=== PATIENT | male | born 1970 | race American Indian/Alaskan Native ===

== ENCOUNTER 2017-08-23 00:16 | Emergency (ER) | payer MEDICARE ==
[2017-08-23 01:04] VITALS: BP 127/81
--- NOTE | 2017-08-23 03:28 | XRay Report ---
FINAL REPORT PROCEDURE: XR CHEST ROUTINE 2V TECHNIQUE: PA and lateral chest radiographs were obtained. CPT 32901 HISTORY: Shortness of breath COMPARISON: No prior studies are available for comparison. FINDINGS: Heart: Normal. Mediastinum/Vessels: Normal. Lungs/Pleural space: Mild scar formation left lower lung. No consolidation, effusion or pneumothorax. Bony thorax: No acute osseous abnormality. Other: IMPRESSION: No evidence of an acute cardiopulmonary process.
[2017-08-23] MEDS ORDERED: DUONEB *Not for PRN Use IH ONE ×2 (03:36→03:43)
--- NOTE | 2017-08-23 07:45 | Emergency Department Report ---
- General Chief Complaint: Upper Respiratory Infection Stated Complaint: CHEST PAIN,SOB Time Seen by Provider: 08/23/17 05:40 Source: patient Mode of arrival: Ambulatory Limitations: No Limitations - Related Data Allergies Allergy/AdvReac Type Severity Reaction Status Date / Time No Known Allergies Allergy Verified 08/23/17 04:05 ED Review of Systems ROS: Stated complaint: CHEST PAIN,SOB Other details as noted in HPI ED Past Medical Hx - Past Medical History Previous Medical History?: Yes Hx Hypertension: Yes Hx Asthma: Yes Hx COPD: Yes Additional medical history: emphazema - Surgical History Past Surgical History?: Yes Additional Surgical History: tendon in right hand fixed - Social History Smoking Status: Current Every Day Smoker Substance Use Type: Prescribed ED Physical Exam - General Limitations: No Limitations ED Course Vital Signs 08/23/17 08/23/17 00:39 01:00 Temperature 99.3 F 99.8 F H Pulse Rate 105 H 104 H Respiratory 18 18 Rate Blood Pressure 122/81 127/81 O2 Sat by Pulse 96 96 Oximetry Critical care attestation.: If time is entered above; I have spent that time in minutes in the direct care of this critically ill patient, excluding procedure time. ED Disposition Clinical Impression: URI, acute Disposition: Z-07 ELOPED Is pt being admited?: No Does the pt Need Aspirin: No Condition: Stable Referrals: PRIMARY CARE, [Primary Care Provider] - 3-5 Days
== END 2017-08-23 05:45 | disposition left against medical advice (07) ==
LOC: ED 00:16
DX: J06.9 Acute upper respiratory infection, unspecified (principal); I10 Essential (primary) hypertension; J44.9 Chronic obstructive pulmonary disease, unspecified; F17.200 Nicotine dependence, unspecified, uncomplicated
CPT/HCPCS: 71046; 93005; 93010; 94640

== ENCOUNTER 2018-10-14 15:16 | Emergency (ER) | payer MEDICARE ==
[2018-10-14] MEDS ORDERED: PROVENTIL IH ONE ×2 (17:18→17:24)
[2018-10-14] MEDS ORDERED: ATROVENT IH ONE ×2 (17:19→17:23)
[2018-10-14 17:23] LABS: Basophils % (Auto) 0.4 % (0.0-1.8); Hematocrit 41.9 % (35.5-45.6); Lymphocytes # (Auto) 1.6 K/mm3 (1.2-5.4); Lymphocytes % (Auto) 14.4 % (13.4-35.0); Mean Corpuscular HGB Conc 34 % (32-34); Mean Corpuscular Volume 87 fl (84-94); Monocytes # (Auto) 0.6 K/mm3 (0.0-0.8); Monocytes % (Auto) 5.4 % (0.0-7.3); Platelet Count 302 K/mm3 (140-440); Red Blood Count 4.83 M/mm3 (3.65-5.03); Red Cell Distribution Width 15.6 % (13.2-15.2)
[2018-10-14 17:38] LABS: INR 0.98 (0.87-1.13); Partial Thromboplastin Time 25.3 Sec. (24.2-36.6)
--- NOTE | 2018-10-14 17:43 | XRay Report ---
PROCEDURE: XR CHEST 1V AP TECHNIQUE: Chest radiograph , single frontal view. HISTORY: Chest Pain COMPARISONS: CXR 08/23/2017 . FINDINGS: Heart: Normal. Mediastinum/Vessels: Normal. Lungs/Pleural space: Stable fibrotic changes in the left lung base are noted. Hyperinflation is agai n noted.. Bony thorax: No acute osseous abnormality. Life support devices: None. IMPRESSION: No acute cardiopulmonary abnormality. No change. This document is electronically signed by Siena Vanegas MD., Oct 14 2018 05:40:50 PM ET
[2018-10-14 17:53] LABS: BUN/Creatinine Ratio 13; Blood Urea Nitrogen 8 mg/dL (9-20); Calcium 9.2 mg/dL (8.4-10.2); Hemolysis Index 3
[2018-10-14 17:56] LABS: Alanine Aminotransferase 15 units/L (7-56); Albumin 4.5 g/dL (3.9-5)
[2018-10-14 18:02] LABS: Bilirubin,Direct < 0.2 mg/dL (0-0.2)
[2018-10-14] MEDS ORDERED: SOLU-Medrol IV ONE (18:46)
--- NOTE | 2018-10-14 18:53 | Emergency Department Report ---
ED General Adult HPI - General Chief complaint: Dyspnea/Respdistress Stated complaint: CHEST PAIN/ASTHMA ATTACK Time Seen by Provider: 10/14/18 16:44 Source: patient Mode of arrival: Ambulatory Limitations: No Limitations - History of Present Illness Initial comments: This is a 48-year-old man with advanced COPD who admits that he is still smoking ten cigarettes a day. He states he is cared for by the pulmonary clinic at [place]. He is currently on 40 mg of prednisone a day. He presents here for wheezing but not chest pain. He does not report any significant cough fever or chills. He states that he's been using his inhalers or anything unusual. He states he's run out of his Combivent inhaler. He does not reasonably attribute his exacerbation of COPD to his persistent smoking. -: Gradual, days(s) Severity scale (0 -10): 0 Associated Symptoms: denies other symptoms, shortness of breath. denies: chest pain, cough, diaphoresis, fever/chills - Related Data Previous Rx's Medication Instructions Recorded Last Taken Type Ipratropium/Albuter (Nf) 2 puff IH QID #1 inha 10/14/18 Unknown Rx [Combivent (Nf)] Allergies Allergy/AdvReac Type Severity Reaction Status Date / Time No Known Allergies Allergy Verified 08/23/17 04:05 ED Review of Systems ROS: Stated complaint: CHEST PAIN/ASTHMA ATTACK Other details as noted in HPI Constitutional: denies: chills, fever Eyes: denies: eye pain, eye discharge, vision change ENT: denies: ear pain, throat pain Respiratory: shortness of breath, wheezing. denies: cough Cardiovascular: denies: chest pain, palpitations Endocrine: no symptoms reported Gastrointestinal: denies: abdominal pain, nausea, diarrhea Genitourinary: denies: urgency, dysuria Musculoskeletal: denies: back pain, joint swelling, arthralgia Skin: denies: rash, lesions Neurological: denies: headache, weakness, paresthesias Psychiatric: denies: anxiety, depression Hematological/Lymphatic: denies: easy bleeding, easy bruising ED Past Medical Hx - Past Medical History Hx Hypertension: Yes Hx Asthma: Yes Hx COPD: Yes Additional medical history: emphazema - Surgical History Additional Surgical History: tendon in right hand fixed - Social History Smoking Status: Current Every Day Smoker Substance Use Type: None - Medications Home Medications: Home Medications Medication Instructions Recorded Confirmed Last Taken Type Ipratropium/Albuter (Nf) 2 puff IH QID #1 inha 10/14/18 Unknown Rx [Combivent (Nf)] ED Physical Exam - General Limitations: No Limitations General appearance: alert, in no apparent distress - Head Head exam: Present: atraumatic, normocephalic - Eye Eye exam: Present: normal appearance - ENT ENT exam: Present: mucous membranes moist - Neck Neck exam: Present: normal inspection - Respiratory Respiratory exam: Present: decreased breath sounds (somewhat distant breath sounds but no wheezing), prolonged expiratory (mildly). Absent: respiratory distress, accessory muscle use - Cardiovascular Cardiovascular Exam: Present: regular rate, normal rhythm. Absent: systolic murmur, diastolic murmur, rubs, gallop - GI/Abdominal GI/Abdominal exam: Present: soft, normal bowel sounds. Absent: distended, tende rness, guarding, rebound, rigid - Rectal Rectal exam: Present: deferred - Extremities Exam Extremities exam: Present: normal inspection - Back Exam Back exam: Present: normal inspection - Neurological Exam Neurological exam: Present: alert, oriented X3 - Psychiatric Psychiatric exam: Present: normal affect, normal mood - Skin Skin exam: Present: warm, dry, intact, normal color. Absent: rash ED Course Vital Signs 10/14/18 10/14/18 10/14/18 15:45 15:54 16:02 Temperature 98.7 F 98.7 F Pulse Rate 115 H 107 H 107 H Pulse Rate [ Anterior Bilateral] Respiratory 18 20 20 Rate Respiratory Rate [Anterior Bilateral] Blood Pressure 128/87 128/87 O2 Sat by Pulse 96 96 96 Oximetry 10/14/18 10/14/18 17:24 18:20 Temperature Pulse Rate Pulse Rate [ 100 H 102 H Anterior Bilateral] Respiratory Rate Respiratory 22 20 Rate [Anterior Bilateral] Blood Pressure O2 Sat by Pulse Oximetry - Reevaluation(s) Reevaluation #1: Patient improved with a neb treatment. The nurse reported to me that he requested to go outside and smoke. He was counseled of the importance for smoki ng cessation. He stated he was ready for discharge. He will be given Solu- Medrol prior to leaving. 10/14/18 18:51 ED Medical Decision Making - Lab Data Result diagrams: 10/14/18 17:06 10/14/18 17:06 Laboratory Results - last 24 hr 10/14/18 10/14/18 10/14/18 17:06 17:06 17:06 WBC 11.3 H RBC 4.83 Hgb 14.0 Hct 41.9 MCV 87 MCH 29 MCHC 34 RDW 15.6 H Plt Count 302 Lymph % (Auto) 14.4 [place] % (Auto) 5.4 Eos % (Auto) 0.0 Baso % (Auto) 0.4 Lymph # 1.6 [place] # 0.6 Eos # 0.0 Baso # 0.0 Seg Neutrophils % 79.8 H Seg Neutrophils # 9.0 H PT 13.6 INR 0.98 APTT 25.3 D-Dimer < 135.0 Sodium 139 Potassium 4.2 Chloride 100.2 Carbon Dioxide 28 Anion Gap 15 BUN 8 L Creatinine 0.6 L Estimated GFR > 60 BUN/Creatinine Ratio 13 Glucose 93 Calcium 9.2 Total Bilirubin Direct Bilirubin Indirect Bilirubin AST ALT Alkaline Phosphatase Troponin T < 0.010 Total Protein Albumin Albumin/Globulin Ratio 10/14/18 17:06 WBC RBC Hgb Hct MCV MCH MCHC RDW Plt Count Lymph % (Auto) [place] % (Auto) Eos % (Auto) Baso % (Auto) Lymph # [place] # Eos # Baso # Seg Neutrophils % Seg Neutrophils # PT INR APTT D-Dimer Sodium Potassium Chloride Carbon Dioxide Anion Gap BUN Creatinine Estimated GFR BUN/Creatinine Ratio Glucose Calcium Total Bilirubin 0.40 Direct Bilirubin < 0.2 Indirect Bilirubin 0.2 AST 14 ALT 15 Alkaline Phosphatase 59 Troponin T Total Protein 6.8 Albumin 4.5 Albumin/Globulin Ratio 2.0 - EKG Data -: EKG Interpreted by Dc EKG shows normal: sinus rhythm, axis, intervals, QRS complexes, ST-T waves Rate: tachycardia - EKG Data Interpretation: no acute changes, other (P pulmonale sinus tachycardia) - Radiology Data Radiology results: report reviewed (x-rays consistent with COPD. No acute process.) Critical care attestation.: If time is entered above; I have spent that time in minutes in the direct care of this critically ill patient, excluding procedure time. ED Disposition Clinical Impression: COPD exacerbation Disposition: DC- TO HOME OR SELFCARE Is pt being admited?: No Does the pt Need Aspirin: No Condition: Stable Instructions: Chronic Obstructive Pulmonary Disease (ED) Additional Instructions: Smoking cessation is essential. Return to the emergency department any acute change or problem. Prescriptions: Ipratropium/Albuter (Nf) [Combivent (Nf)] 2 puff IH QID #1 inha Referrals: [facility] MD SARA [Primary Care Provider] - 3-5 Days Time of Disposition: 18:53
[2018-10-14 19:22] VITALS: BP 140/98
[2018-10-14 22:56] LABS: Bilirubin,Urine NEG (Negative); Blood,Urine NEG (Negative); Color,Urine Yellow (Yellow); Mucus,Urine 3+ /HPF; Protein,Urine <15 mg/dL mg/dL (Negative)
[2018-10-14 23:01] LABS: Amphetamine Screen,Urine PRESUMPTIVE NEGATIVE; Benzodiazepines Screen,Urine PRESUMPTIVE NEGATIVE; Cannabinoid Screen,Urine PRESUMPTIVE NEGATIVE; Cocaine Screen,Urine PRESUMPTIVE NEGATIVE; Methadone Screen,Urine PRESUMPTIVE NEGATIVE; Opiate Screen,Urine PRESUMPTIVE NEGATIVE
== END 2018-10-14 19:20 | disposition home or self-care (01) ==
LOC: ED 15:16
DX: J44.1 Chronic obstructive pulmonary disease with (acute) exacerbation (principal); I10 Essential (primary) hypertension; F17.200 Nicotine dependence, unspecified, uncomplicated
CPT/HCPCS: 36415; 71045; 80048; 80076; 80307; 81001; 84484; 85025; 85379; 85610; 85730; 93005; 93010; 94640; 96374; 99284; J2930

== ENCOUNTER 2019-02-07 18:14 | Emergency (ER) | payer OTHER, MEDICARE ==
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
[2019-02-07] MEDS ORDERED: TYLENOL PO ONE (20:17)
[2019-02-07] MEDS ORDERED: IBUPROFEN PO ONE (20:17)
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
[2019-02-07] MEDS ORDERED: NACL 0.9% 1000 ML 1,000 ML IV ONE (20:53)
[2019-02-07] MEDS ORDERED: APRESOLINE IV ONE ×2 (20:53→21:34)
[2019-02-07] MEDS ORDERED: NACL 0.9% 1000 ML 1,000 ML ONE (20:56)
[2019-02-07] MEDS ORDERED: DUONEB *Not for PRN Use IH ONE ×2 (21:42→21:46)
[2019-02-07] MEDS ORDERED: DELTASONE PO ONE (21:42)
[2019-02-07] MEDS ORDERED: DELTASONE ONE (21:46)
[2019-02-07 23:20] VITALS: BP 157/100
== END 2019-02-07 22:15 | disposition home or self-care (01) ==
LOC: ED 18:14
DX: S29.011A Strain of muscle and tendon of front wall of thorax, initial encounter (principal); S27.69XA Other injury of pleura, initial encounter; I10 Essential (primary) hypertension; J44.9 Chronic obstructive pulmonary disease, unspecified; F17.200 Nicotine dependence, unspecified, uncomplicated; Z79.899 Other long term (current) drug therapy; V49.9XXA Car occupant (driver) (passenger) injured in unspecified traffic accident, initial encounter; Y93.89 Activity, other specified; Y92.410 Unspecified street and highway as the place of occurrence of the external cause; Y99.8 Other external cause status
CPT/HCPCS: 71111; 94640; 96374; 99283; J0360; J7030; J7512

== ENCOUNTER 2019-02-13 02:56 | Emergency (ER) | payer MEDICARE, OTHER ==
[2019-02-13] MEDS ORDERED: ASPIRIN PO ONE (03:07)
[2019-02-13 03:30] LABS: Basophils # (Auto) 0.1 K/mm3 (0.0-0.1); Basophils % (Auto) 1.2 % (0.0-1.8); Eosinophils % (Auto) 0.5 % (0.0-4.3); Hematocrit 41.2 % (35.5-45.6); Lymphocytes # (Auto) 1.9 K/mm3 (1.2-5.4); Mean Corpuscular HGB Conc 34 % (32-34); Mean Corpuscular Volume 87 fl (84-94); Monocytes # (Auto) 0.8 K/mm3 (0.0-0.8); Monocytes % (Auto) 9.5 % (0.0-7.3); Platelet Count 300 K/mm3 (140-440); Red Blood Count 4.75 M/mm3 (3.65-5.03); Red Cell Distribution Width 14.4 % (13.2-15.2)
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
[2019-02-13 03:51] LABS: BUN/Creatinine Ratio 16; Blood Urea Nitrogen 13 mg/dL (9-20); Calcium 9.6 mg/dL (8.4-10.2); Hemolysis Index 16
--- NOTE | 2019-02-13 03:53 | XRay Report ---
CHEST 1 VIEW 0319 INDICATION / CLINICAL INFORMATION: Chest Pain. COMPARISON: 02/07/2019 FINDINGS: SUPPORT DEVICES: None HEART / MEDIASTINUM: No significant abnormality. LUNGS / PLEURA: Chronic changes are again seen in the left lung. Right lung field is clear. No pneumo thorax. ADDITIONAL FINDINGS: No significant additional findings. IMPRESSION: No significant acute abnormality Signer Name: Gerardo Linn MD Signed: 02/13/2019 3:49 AM Workstation Name: [id number]
[2019-02-13] MEDS ORDERED: DUONEB *Not for PRN Use IH ONE (04:37)
--- NOTE | 2019-02-13 04:54 | Cat Scan Report ---
CTA CHEST WITH IV CONTRAST INDICATION: Tachycardia, chest pain, shortness of breath CONTRAST: 100 cc Omnipaque 350 IV COMPARISON: Chest x-ray tonight and 08/23/2017 Three-plane MIP reconstructions were produced. All CT scans at this location are performed using CT d ose reduction for ALARA by means of automated exposure control. FINDINGS: No significant axillary or chest wall lesions are seen. No mediastinal or hilar masses are noted. Small hiatal hernia is seen. The lower esophageal wall appears mildly and diffusely thickened. Visualized portions of the upper abdomen show what are probably small hemangiomata at 3 sites in the liver. Moderate chronic changes are seen in the lung meade bilaterally including emphysematous lou ges which are most prominent in the upper lobes, worse on the left. Pleural-parenchymal scarring is s een in the left apical area. In the midportion of this scar an ovoid density is seen measuring 17 mm in length and 9 mm in thickness which is probably just part of the scar but has a somewhat thickened and nodular appearance. Pleural-parenchymal scarring is noted in the left base, particularly laterall y, giving the appearance on chest x-ray which is stable. Aorta shows no aneurysmal dilatation or evidence of dissection. Borderline opacification of the pulmonary arterial system was achieved with imaging late in the bolus . This makes evaluation of small arteries difficult. However, I do not see convincing evidence of pul monary thromboembolism. Certainly no large central emboli are obvious. IMPRESSION: 1. No convincing evidence of pulmonary thromboembolism 2. Chronic pulmonary changes 3. Ovoid density within a scar in the left apex. I believe this is probably just part of the scar but I would suggest follow-up. 4. Probable small hemangiomata in the liver. These could be followed. 5. Possible distal esophageal wall thickening. Follow-up is suggested. Signer Name: Gerardo Linn MD Signed: 02/13/2019 4:50 AM Workstation Name: [id number]
[2019-02-13 06:08] VITALS: BP 153/92
== END 2019-02-13 06:08 | disposition home or self-care (01) ==
LOC: ED 02:56
DX: R07.89 Other chest pain (principal); G44.209 Tension-type headache, unspecified, not intractable; I10 Essential (primary) hypertension; J45.909 Unspecified asthma, uncomplicated; J43.9 Emphysema, unspecified; Z98.890 Other specified postprocedural states; F17.200 Nicotine dependence, unspecified, uncomplicated; Z79.899 Other long term (current) drug therapy
CPT/HCPCS: 36415; 71045; 71275; 80048; 84443; 84484; 85025; 93005; 93010; 94640; 99285; Q9967; 94644

== ENCOUNTER 2019-05-18 14:55 | Emergency (ER) | payer MEDICARE, OTHER ==
[2019-05-18] MEDS ORDERED: ASPIRIN 325 MG TAB PO ONE (15:11)
--- NOTE | 2019-05-18 15:11 | Event Note ---
ED Screening Note Date of service: 05/18/19 Time: 15:10 ED Screening Note: 49 y o male with pmh of asthma cc of fever, sob, coughing with chest pain This initial assessment/diagnostic orders/clinical plan/treatment(s) is/are subject to change based on patients health status, clinical progression and re- assessment by fellow clinical providers in the ED. Further treatment and workup at subsequent clinical providers discretion. Patient/guardian urged not to elope from the ED as their condition may be serious if not clinically assessed and managed. Initial orders include: labs,ekg,cxr
[2019-05-18] MEDS ORDERED: methylPREDNISolone Sod Succinate 125 MG/2 ML INJ IV ONE (15:35)
[2019-05-18] MEDS ORDERED: IPRATROPIUM 0.02% NEBU 2.5 ML IH ONE (15:35)
[2019-05-18] MEDS ORDERED: ALBUTEROL 2.5 MG/3 ML NEBU IH ONE (15:35)
--- NOTE | 2019-05-18 15:40 | Emergency Department Report ---
ED Shortness of Breath HPI - General Chief Complaint: Chest Pain Stated Complaint: CHEST PAIN/SOB/FEVER/CHILLS Time Seen by Provider: 05/18/19 15:31 Source: patient Mode of arrival: Ambulatory Limitations: No Limitations - History of Present Illness Initial Comments: Patient is 49 years old with history of COPD, asthma and hypertension. Patient presented to the ER complaining of shortness of breath, difficulty breathing, wheezing, fever and chills and cough productive with greenish sputum for the last 3 days. Patient also complaining of chest pain, diffuse, aching and dull increase with coughing and taking a deep breath. Patient denied any nausea or vomiting. MD Complaint: shortness of breath, cough, chest pain, pain with inspiration -: days(s) (3) Quality: dull, aching Consistency: intermittent Worsens With: coughing Known History Of: COPD, asthma Context: recent URI - Related Data Previous Rx's Medication Instructions Recorded Last Taken Type Ipratropium/Albuter (Nf) 2 puff IH QID #1 inha 10/14/18 Unknown Rx [Combivent (Nf)] Cyclobenzaprine [Flexeril] 10 mg PO Q8H PRN #15 tablet 02/07/19 Unknown Rx Ibuprofen [Motrin] 600 mg PO Q8H PRN #20 tablet 02/07/19 Unknown Rx Allergies Allergy/AdvReac Type Severity Reaction Status Date / Time No Known Allergies Allergy Verified 08/23/17 04:05 ED Review of Systems ROS: Stated complaint: CHEST PAIN/SOB/FEVER/CHILLS Other details as noted in HPI Comment: All other systems reviewed and negative Constitutional: chills, fever Respiratory: cough, shortness of breath, SOB with exertion, SOB at rest, wheez ing Cardiovascular: chest pain, palpitations Gastrointestinal: denies: abdominal pain, nausea, vomiting, diarrhea, constipation, hematemesis, melena, hematochezia Genitourinary: denies: urgency, dysuria Musculoskeletal: denies: back pain Neurological: denies: headache, weakness, numbness, paresthesias, confusion, abnormal gait ED Past Medical Hx - Past Medical History Hx Hypertension: Yes Hx Asthma: Yes Hx COPD: Yes (Emphysema Stage IV Home 02 3L prn) Additional medical history: emphazema - Surgical History Additional Surgical History: tendon in right hand fixed - Social History Smoking Status: Former Smoker Substance Use Type: None - Medications Home Medications: Home Medications Medication Instructions Recorded Confirmed Last Taken Type Ipratropium/Albuter (Nf) 2 puff IH QID #1 inha 10/14/18 Unknown Rx [Combivent (Nf)] Cyclobenzaprine [Flexeril] 10 mg PO Q8H PRN #15 tablet 02/07/19 Unknown Rx Ibuprofen [Motrin] 600 mg PO Q8H PRN #20 tablet 02/07/19 Unknown Rx ED Physical Exam - General Limitations: No Limitations General appearance: alert, in distress (moderate respiratory distress) - Head Head exam: Present: atraumatic, normocephalic, normal inspection - Eye Eye exam: Present: normal appearance - ENT ENT exam: Present: normal exam, normal orophraynx, mucous membranes moist - Neck Neck exam: Present: normal inspection, full ROM. Absent: tenderness, meningismus, lymphadenopathy, thyromegaly - Respiratory Respiratory exam: Present: respiratory distress, wheezes, rales, rhonchi, chest wall tenderness, decreased breath sounds, prolonged expiratory. Absent: stridor, accessory muscle use - Cardiovascular Cardiovascular Exam: Present: tachycardia - GI/Abdominal GI/Abdominal exam: Present: soft, normal bowel sounds. Absent: distended, tenderness, guarding, rebound, rigid, organomegaly, mass, bruit, pulsatile mass, hernia - Extremities Exam Extremities exam: Present: normal inspection, full ROM, normal capillary refill. Absent: tenderness, pedal edema, calf tenderness - Back Exam Back exam: Present: normal inspection, full ROM. Absent: CVA tenderness (R), CVA tenderness (L), muscle spasm, paraspinal tenderness, vertebral tenderness - Neurological Exam Neurological exam: Present: alert, oriented X3, CN II-XII intact, normal gait, reflexes normal - Psychiatric Psychiatric exam: Present: normal mood - Skin Skin exam: Present: warm, intact, normal color ED Course Vital Signs 05/18/19 05/18/19 05/18/19 15:08 15:55 16:10 Temperature 98.8 F Pulse Rate 124 H Pulse Rate [ 118 H Anterior Bilateral Throughout] Respiratory 18 21 Rate Respiratory 18 Rate [Anterior Bilateral Throughout] Blood Pressure 144/96 Blood Pressure [Left] O2 Sat by Pulse 100 Oximetry 12/11/19 12/11/19 16:30 17:01 Temperature Pulse Rate 116 H 117 H Pulse Rate [ Anterior Bilateral Throughout] Respiratory 17 21 Rate Respiratory Rate [Anterior Bilateral Throughout] Blood Pressure Blood Pressure 130/83 [Left] O2 Sat by Pulse 92 89 Oximetry ED Medical Decision Making - Lab Data Result diagrams: 05/18/19 15:21 05/18/19 15:21 - EKG Data -: EKG Interpreted by [facility] EKG shows normal: sinus rhythm Rate: tachycardia - EKG Data Interpretation: no acute changes - Radiology Data Radiology results: report reviewed - Medical Decision Making Patient is 49 years old with history of COPD, asthma and hypertension. Patient presented to the ER complaining of shortness of breath, difficulty breathing, wheezing, fever and chills and cough productive with greenish sputum for the last 3 days. Patient also complaining of chest pain, diffuse, aching and dull increase with coughing and taking a deep breath. Patient denied any nausea or vomiting. Patient received albuterol, Atrovent, Solu-Medrol. Labs reviewed and is unremarkable. Chest x-ray is negative for acute finding. 2 sets of troponin is negative. Patient chest pain is atypical. Patient stated that he is feeling much better and denied any chest pain at this moment. Patient advised to follow-up with his primary care physician in the next 3 days and to return to the ER if symptoms are not improved. Critical care attestation.: If time is entered above; I have spent that time in minutes in the direct care of this critically ill patient, excluding procedure time. ED Disposition Clinical Impression: COPD exacerbation, Acute bronchitis, Chest pain Disposition: - TO HOME OR SELFCARE Is pt being admited?: No Condition: Stable Instructions: Chronic Obstructive Pulmonary Disease (ED), Acute Bronchitis (ED), Chest Pain (ED) Referrals: PRIMARY CARE, [Primary Care Provider] - 3-5 Days
[2019-05-18 16:05] LABS: BUN/Creatinine Ratio 11; Blood Urea Nitrogen 9 mg/dL (9-20); Calcium 8.7 mg/dL (8.4-10.2); Hemolysis Index 10
[2019-05-18 16:07] LABS: Hematocrit 41.9 % (35.5-45.6); Hemoglobin 14.1 gm/dl (11.8-15.2); Mean Corpuscular HGB Conc 34 % (32-34); Mean Corpuscular Volume 86 fl (84-94); Platelet Count 206 K/mm3 (140-440); Red Cell Distribution Width 15.2 % (13.2-15.2)
--- NOTE | 2019-05-18 16:13 | XRay Report ---
CHEST 1 VIEW INDICATION: Chest Pain. COMPARISON: 02/13/2019 FINDINGS: Support devices: None. Heart: Within normal limits. Lungs/Pleura: The lungs are hyperinflated consistent with advanced COPD. Focal subpleural scarring at the left lung base is unchanged. No evidence for pneumonia, CHF or pneumothorax. Additional findings: None. IMPRESSION: No acute process. Advanced emphysema. Signer Name: Mich Masterson Jr, MD Signed: 05/18/2019 4:09 PM Workstation Name: [id number]
[2019-05-18 16:41] LABS: INR 0.97 (0.87-1.13)
[2019-05-18 16:42] LABS: Partial Thromboplastin Time 27.3 Sec. (24.2-36.6)
[2019-05-18 16:45] LABS: Alanine Aminotransferase 20 units/L (7-56); Albumin 3.8 g/dL (3.9-5); Bilirubin,Direct < 0.2 mg/dL (0-0.2)
[2019-05-18 19:21] VITALS: BP 125/79
[2019-05-18 21:45] LABS: Basophils % (Manual) 0 % (0.0-1.8); Eosinophils % (Manual) 0 % (0.0-4.3); Total Cells Counted 100
[2019-05-18 21:46] LABS: Large Platelets 1+; Platelet Estimate Consistent w Auto; RBC Morphology Normal
== END 2019-05-18 19:20 | disposition home or self-care (01) ==
LOC: ED 14:55
DX: J44.1 Chronic obstructive pulmonary disease with (acute) exacerbation (principal); J20.9 Acute bronchitis, unspecified; I10 Essential (primary) hypertension; Z87.891 Personal history of nicotine dependence; Z79.899 Other long term (current) drug therapy
CPT/HCPCS: 36415; 71045; 80048; 80076; 83880; 84484; 85007; 85025; 85610; 85730; 87040; 93005; 93010; 94640; 96374; 99284; J2930; 94644

== ENCOUNTER 2019-08-28 02:59 | Emergency (ER) | payer MEDICARE ==
[2019-08-28] MEDS ORDERED: ASPIRIN 325 MG TAB PO ONE (05:07)
[2019-08-28 05:24] VITALS: BP 141/81
[2019-08-28 05:35] LABS: Basophils % (Auto) 0.2 % (0.0-1.8); Eosinophils % (Auto) 0.2 % (0.0-4.3); Hematocrit 40.8 % (35.5-45.6); Hemoglobin 13.5 gm/dl (11.8-15.2); Lymphocytes # (Auto) 1.1 K/mm3 (1.2-5.4); Lymphocytes % (Auto) 9.2 % (13.4-35.0); Mean Corpuscular HGB Conc 33 % (32-34); Mean Corpuscular Volume 87 fl (84-94); Monocytes # (Auto) 1.5 K/mm3 (0.0-0.8); Monocytes % (Auto) 13.2 % (0.0-7.3); Platelet Count 274 K/mm3 (140-440); Red Blood Count 4.68 M/mm3 (3.65-5.03); Red Cell Distribution Width 15.9 % (13.2-15.2)
--- NOTE | 2019-08-28 05:44 | XRay Report ---
CHEST 1 VIEW INDICATION / CLINICAL INFORMATION: Chest Pain. COMPARISON: 05/18/2019 FINDINGS: SUPPORT DEVICES: None. HEART / MEDIASTINUM: No significant abnormality. LUNGS / PLEURA: Changes of COPD No pneumothorax. ADDITIONAL FINDINGS: No significant additional findings. IMPRESSION: Changes of COPD. No acute disease or interval change from 05/18/2019 Signer Name: Pito Davis MD FACR Signed: 08/28/2019 5:40 AM Workstation Name: [id number]
[2019-08-28 05:56] LABS: BUN/Creatinine Ratio 30; Blood Urea Nitrogen 21 mg/dL (9-20); Calcium 9.6 mg/dL (8.4-10.2); Hemolysis Index 6
[2019-08-28] MEDS ORDERED: MAGNESIUM SULFATE 2 GM/50 ML BAG IV ONE (06:27)
[2019-08-28] MEDS ORDERED: methylPREDNISolone Sod Succinate 125 MG/2 ML INJ IV ONE (06:27)
[2019-08-28] MEDS ORDERED: IPRATROPIUM 0.02% NEBU 2.5 ML IH ONE (06:29)
[2019-08-28] MEDS ORDERED: ALBUTEROL 2.5 MG/3 ML NEBU IH ONE (06:29)
--- NOTE | 2019-08-28 06:34 | Emergency Department Report ---
ED General Adult HPI - General Chief complaint: Chest Pain Stated complaint: SOB,COUGH Time Seen by Provider: 08/28/19 06:14 Source: patient Mode of arrival: Stretcher Limitations: No Limitations - History of Present Illness Initial comments: Patient presents to the emergency department with a chief complaint of shortness of breath. Patient states he has a history emphysema has been using his nebulizer and albuterol inhaler more lately. Patient denies have any chest pain and states that he is not on oxygen at home. Patient states when he lived in [facility] a couple years ago he was on oxygen but has not been on oxygen since that time. Patient denies any fever, cough, congestion. Patient states that shortness of breath becomes worse with exertion. -: Gradual Severity scale (0 -10): 0 Consistency: constant Improves with: rest Worsens with: movement Associated Symptoms: denies other symptoms Treatments Prior to Arrival: none - Related Data Previous Rx's Medication Instructions Recorded Last Taken Type Ipratropium/Albuter (Nf) 2 puff IH QID #1 inha 10/14/18 Unknown Rx [Combivent (Nf)] Cyclobenzaprine [Flexeril] 10 mg PO Q8H PRN #15 tablet 02/07/19 Unknown Rx Ibuprofen [Motrin] 600 mg PO Q8H PRN #20 tablet 02/07/19 Unknown Rx Albuterol INH(or & Nicu Only) 2 puff IH QID PRN #1 inhalation 05/18/19 Unknown Rx [ProAir HFA Inhaler] Prednisone [predniSONE 10 mg 10 mg PO .TAPER #1 tab.ds.pk 05/18/19 Unknown Rx (6-Day Pack, 21 Tabs)] levoFLOXacin [Levaquin TAB] 500 mg PO QDAY #7 tablet 05/18/19 Unknown Rx Albuterol INH(or & Nicu Only) 2 puff IH Q4HR PRN #1 inhalation 08/28/19 Unknown Rx [ProAir HFA Inhaler] Albuterol Sulfate [Albuterol 0.63% 0.63 mg IH Q4HR PRN #30 ml 08/28/19 Unknown Rx NEBS] levoFLOXacin [Levaquin] 750 mg PO QDAY #7 tablet 08/28/19 Unknown Rx Allergies Allergy/AdvReac Type Severity Reaction Status Date / Time No Known Allergies Allergy Verified 08/23/17 04:05 ED Review of Systems ROS: Stated complaint: SOB,COUGH Other details as noted in HPI Constitutional: denies: chills, fever Eyes: denies: eye pain, eye discharge, vision change ENT: denies: ear pain, throat pain Respiratory: shortness of breath. denies: cough, wheezing Cardiovascular: denies: chest pain, palpitations Endocrine: no symptoms reported Gastrointestinal: denies: abdominal pain, nausea, diarrhea Genitourinary: denies: urgency, dysuria Musculoskeletal: denies: back pain, joint swelling, arthralgia Skin: denies: rash, lesions Neurological: denies: headache, weakness, paresthesias Psychiatric: denies: anxiety, depression Hematological/Lymphatic: denies: easy bleeding, easy bruising ED Past Medical Hx - Past Medical History Previous Medical History?: Yes Hx Hypertension: Yes Hx Congestive Heart Failure: Yes Hx Asthma: Yes Hx COPD: Yes (Emphysema Stage IV Home 02 3L prn) Additional medical history: Tackycardia - Surgical History Past Surgical History?: Yes Additional Surgical History: tendon in right hand fixed - Social History Smoking Status: Current Every Day Smoker - Medications Home Medications: Home Medications Medication Instructions Recorded Confirmed Last Taken Type Ipratropium/Albuter (Nf) 2 puff IH QID #1 inha 10/14/18 Unknown Rx [Combivent (Nf)] Cyclobenzaprine [Flexeril] 10 mg PO Q8H PRN #15 tablet 02/07/19 Unknown Rx Ibuprofen [Motrin] 600 mg PO Q8H PRN #20 tablet 02/07/19 Unknown Rx Albuterol INH(or & Nicu Only) 2 puff IH QID PRN #1 inhalation 05/18/19 Unknown Rx [ProAir HFA Inhaler] Prednisone [predniSONE 10 mg 10 mg PO .TAPER #1 tab.ds.pk 05/18/19 Unknown Rx (6-Day Pack, 21 Tabs)] levoFLOXacin [Levaquin TAB] 500 mg PO QDAY #7 tablet 05/18/19 Unknown Rx Albuterol INH(or & Nicu Only) 2 puff IH Q4HR PRN #1 inhalation 08/28/19 Unknown Rx [ProAir HFA Inhaler] Albuterol Sulfate [Albuterol 0.63% 0.63 mg IH Q4HR PRN #30 ml 08/28/19 Unknown Rx NEBS] levoFLOXacin [Levaquin] 750 mg PO QDAY #7 tablet 08/28/19 Unknown Rx ED Physical Exam - General Limitations: No Limitations General appearance: alert, in no apparent distress - Head Head exam: Present: atraumatic, normocephalic - Eye Eye exam: Present: normal appearance, PERRL, EOMI - ENT ENT exam: Present: mucous membranes moist - Neck Neck exam: Present: normal inspection - Respiratory Respiratory exam: Present: wheezes. Absent: respiratory distress - Cardiovascular Cardiovascular Exam: Present: normal rhythm, tachycardia. Absent: systolic murmur, diastolic murmur, rubs, gallop - GI/Abdominal GI/Abdominal exam: Present: soft, normal bowel sounds. Absent: distended, tenderness - Rectal Rectal exam: Present: deferred - Extremities Exam Extremities exam: Present: normal inspection - Back Exam Back exam: Present: normal inspection - Neurological Exam Neurological exam: Present: alert, oriented X3, CN II-XII intact. Absent: motor sensory deficit - Psychiatric Psychiatric exam: Present: normal affect, normal mood - Skin Skin exam: Present: warm, dry, intact, normal color. Absent: rash ED Course Vital Signs 08/28/19 08/28/19 08/28/19 03:15 07:30 07:35 Temperature 97.4 F L Pulse Rate 131 H 110 H Respiratory 20 20 Rate Blood Pressure 141/81 O2 Sat by Pulse 92 88 94 Oximetry ED Medical Decision Making - Lab Data Result diagrams: 08/28/19 05:17 08/28/19 05:17 Lab Results 08/28/19 08/28/19 08/28/19 Range/Units 05:17 05:17 07:02 WBC 11.6 H (4.5-11.0) K/mm3 RBC 4.68 (3.65-5.03) M/mm3 Hgb 13.5 (11.8-15.2) gm/dl Hct 40.8 (35.5-45.6) % MCV 87 (84-94) fl MCH 29 (28-32) pg MCHC 33 (32-34) % RDW 15.9 H (13.2-15.2) % Plt Count 274 (140-440) K/mm3 Lymph % (Auto) 9.2 L (13.4-35.0) % Brantley % (Auto) 13.2 H (0.0-7.3) % Eos % (Auto) 0.2 (0.0-4.3) % Baso % (Auto) 0.2 (0.0-1.8) % Lymph # 1.1 L (1.2-5.4) K/mm3 Brantley # 1.5 H (0.0-0.8) K/mm3 Eos # 0.0 (0.0-0.4) K/mm3 Baso # 0.0 (0.0-0.1) K/mm3 Seg Neutrophils % 77.2 H (40.0-70.0) % Seg Neutrophils # 9.0 H (1.8-7.7) K/mm3 Sodium 143 (137-145) mmol/L Potassium 4.0 (3.6-5.0) mmol/L Chloride 97.6 L (98-107) mmol/L Carbon Dioxide 34 H (22-30) mmol/L Anion Gap 15 mmol/L BUN 21 H (9-20) mg/dL Creatinine 0.7 L (0.8-1.5) mg/dL Estimated GFR > 60 ml/min BUN/Creatinine Ratio 30 % Glucose 126 H (75-100) mg/dL Calcium 9.6 (8.4-10.2) mg/dL Magnesium (1.7-2.3) mg/dL Troponin T < 0.010 < 0.010 (0.00-0.029) ng/mL NT-Pro-B Natriuret Pep (0-450) pg/mL 08/28/19 08/28/19 Range/Units 07:02 07:02 WBC (4.5-11.0) K/mm3 RBC (3.65-5.03) M/mm3 Hgb (11.8-15.2) gm/dl Hct (35.5-45.6) % MCV (84-94) fl MCH (28-32) pg MCHC (32-34) % RDW (13.2-15.2) % Plt Count (140-440) K/mm3 Lymph % (Auto) (13.4-35.0) % Brantley % (Auto) (0.0-7.3) % Eos % (Auto) (0.0-4.3) % Baso % (Auto) (0.0-1.8) % Lymph # (1.2-5.4) K/mm3 Brantley # (0.0-0.8) K/mm3 Eos # (0.0-0.4) K/mm3 Baso # (0.0-0.1) K/mm3 Seg Neutrophils % (40.0-70.0) % Seg Neutrophils # (1.8-7.7) K/mm3 Sodium (137-145) mmol/L Potassium (3.6-5.0) mmol/L Chloride (98-107) mmol/L Carbon Dioxide (22-30) mmol/L Anion Gap mmol/L BUN (9-20) mg/dL Creatinine (0.8-1.5) mg/dL Estimated GFR ml/min BUN/Creatinine Ratio % Glucose (75-100) mg/dL Calcium (8.4-10.2) mg/dL Magnesium 2.50 H (1.7-2.3) mg/dL Troponin T (0.00-0.029) ng/mL NT-Pro-B Natriuret Pep 83.15 (0-450) pg/mL - EKG Data -: EKG Interpreted by Me EKG shows normal: sinus rhythm Rate: tachycardia - Radiology Data Radiology results: report reviewed - Medical Decision Making Patient states he is significantly improved after hour-long breathing treatment, IV magnesium, IV Solu-Medrol Patient's O2 sats are 97% upon discharge and a heart rate of 100 bpm Critical care attestation.: If time is entered above; I have spent that time in minutes in the direct care of this critically ill patient, excluding procedure time. ED Disposition Clinical Impression: COPD with emphysema, COPD exacerbation Disposition: DC-01 TO HOME OR SELFCARE Is pt being admited?: No Does the pt Need Aspirin: No Condition: Stable Instructions: Chronic Obstructive Pulmonary Disease (ED) Additional Instructions: return if worse Referrals: CHRISTIAN SALAZAR MD [Primary Care Provider] - 3-5 Days
== END 2019-08-28 09:51 | disposition home or self-care (01) ==
LOC: ED 02:59
DX: J44.1 Chronic obstructive pulmonary disease with (acute) exacerbation (principal); I11.0 Hypertensive heart disease with heart failure; I50.9 Heart failure, unspecified; F17.200 Nicotine dependence, unspecified, uncomplicated; Z79.1 Long term (current) use of non-steroidal anti-inflammatories (NSAID); Z79.899 Other long term (current) drug therapy
CPT/HCPCS: 36415; 71045; 80048; 83735; 83880; 84484; 85025; 93005; 93010; 94640; 96365; 96375; 99285; J2930; J3475

== ENCOUNTER 2021-12-19 10:53 | Inpatient (IN) | payer MEDICARE ==
[2021-12-19] MEDS ORDERED: IPRATROPIUM 0.02% NEBU 2.5 ML IH ONE (11:16)
[2021-12-19] MEDS ORDERED: ALBUTEROL 2.5 MG/3 ML NEBU IH ONE (11:16)
[2021-12-19] MEDS ORDERED: LACTATED RINGERS 500 ML IV ONE (11:16)
--- NOTE | 2021-12-19 11:17 | Emergency Department Report ---
ED General Adult HPI - General Chief complaint: Dyspnea/Respdistress Stated complaint: JIMMY PUI?: No Time Seen by Provider: 12/19/21 11:10 Source: patient, EMS ( EMS documentation not available at time of chart dictation ), RN notes reviewed, old records reviewed Mode of arrival: Stretcher Limitations: Physical Limitation - History of Present Illness Initial comments: The patient was evaluated in the emergency department for symptoms described in the history of present illness. He/she was evaluated in the context of the al COVID-19 pandemic, which necessitated consideration that the patient might be at risk for infection with the virus that causes COVID-19. Institutional protocols and algorithms that pertain to the evaluation of patients at risk for COVID-19 are in a state of rapid change based on information released by regulatory bodies including the CDC and federal and state organizations. These policies and algorithms were followed during the patient's care in the emergency department. Please note that these policies, procedures and recommendations changed on a rapid basis. This patient is a pleasant and cooperative 51-year-old gentleman with a history of COPD, who is COVID-19 vaccinated, who also has a history of chronic respiratory failure, on 3 L of home oxygen, who presents to the department today with complaint of cough, mucus production and shortness of breath, and wheezing. EMS administered magnesium and Solu-Medrol. They reportedly did not give albuterol or Atrovent. The patient typically follows at [facility]. He denies physical pain. He denies travel, surgery, immobilization, DVT and pulmonary embolism risk factors. -: days(s) Severity scale (0 -10): 0 Consistency: constant Improves with: medication, rest Worsens with: movement - Related Data Previous Rx's Medication Instructions Recorded Last Taken Type Ipratropium/Albuter (Nf) 2 puff IH QID #1 inha 10/14/18 Unknown Rx [Combivent (Nf)] Cyclobenzaprine [Flexeril] 10 mg PO Q8H PRN #15 tablet 02/07/19 Unknown Rx Ibuprofen [Motrin] 600 mg PO Q8H PRN #20 tablet 02/07/19 Unknown Rx Albuterol Mdi (or & Nicu Only) 2 puff IH QID PRN #1 inhalation 05/18/19 Unknown Rx [ProAir HFA Inhaler] Prednisone [predniSONE 10 mg 10 mg PO .TAPER #1 tab.ds.pk 05/18/19 Unknown Rx (6-Day Pack, 21 Tabs)] levoFLOXacin [Levaquin TAB] 500 mg PO QDAY #7 tablet 05/18/19 Unknown Rx Albuterol Mdi (or & Nicu Only) 2 puff IH Q4HR PRN #1 inhalation 08/28/19 Unknown Rx [ProAir HFA Inhaler] Albuterol Sulfate [Albuterol 0.63% 0.63 mg IH Q4HR PRN #30 ml 08/28/19 Unknown Rx NEBS] levoFLOXacin [Levaquin] 750 mg PO QDAY #7 tablet 08/28/19 Unknown Rx Allergies Allergy/AdvReac Type Severity Reaction Status Date / Time No Known Allergies Allergy Verified 12/19/21 11:03 ED Review of Systems ROS: Stated complaint: JIMMY Other details as noted in HPI Comment: All other systems reviewed and negative Respiratory: cough, shortness of breath, SOB with exertion, SOB at rest, wheezing Cardiovascular: denies: chest pain Gastrointestinal: denies: abdominal pain, melena, hematochezia Neurological: denies: weakness ED Past Medical Hx - Past Medical History Hx Hypertension: Yes Hx Congestive Heart Failure: Yes Hx Asthma: Yes Hx COPD: Yes (Emphysema Stage IV Home 02 3L prn) Additional medical history: Tackycardia - Surgical History Additional Surgical History: tendon in right hand fixed - Social History Smoking Status: Current Every Day Smoker - Medications Home Medications: Home Medications Medication Instructions Recorded Confirmed Last Taken Type Ipratropium/Albuter (Nf) 2 puff IH QID #1 inha 10/14/18 Unknown Rx [Combivent (Nf)] Cyclobenzaprine [Flexeril] 10 mg PO Q8H PRN #15 tablet 02/07/19 Unknown Rx Ibuprofen [Motrin] 600 mg PO Q8H PRN #20 tablet 02/07/19 Unknown Rx Albuterol Mdi (or & Nicu Only) 2 puff IH QID PRN #1 inhalation 05/18/19 Unknown Rx [ProAir HFA Inhaler] Prednisone [predniSONE 10 mg 10 mg PO .TAPER #1 tab.ds.pk 05/18/19 Unknown Rx (6-Day Pack, 21 Tabs)] levoFLOXacin [Levaquin TAB] 500 mg PO QDAY #7 tablet 05/18/19 Unknown Rx Albuterol Mdi (or & Nicu Only) 2 puff IH Q4HR PRN #1 inhalation 08/28/19 Unknown Rx [ProAir HFA Inhaler] Albuterol Sulfate [Albuterol 0.63% 0.63 mg IH Q4HR PRN #30 ml 08/28/19 Unknown Rx NEBS] levoFLOXacin [Levaquin] 750 mg PO QDAY #7 tablet 08/28/19 Unknown Rx ED Physical Exam - General Limitations: Physical Limitation General appearance: alert, in no apparent distress - Head Head exam: Present: atraumatic, normocephalic - Eye Eye exam: Present: normal appearance, EOMI. Absent: nystagmus - ENT ENT exam: Present: normal exam, normal orophraynx, mucous membranes moist, normal external ear exam - Neck Neck exam: Present: normal inspection, full ROM. Absent: tenderness, m eningismus - Respiratory Respiratory exam: Present: respiratory distress, wheezes, rhonchi - Cardiovascular Cardiovascular Exam: Present: normal rhythm, tachycardia, normal heart sounds. Absent: bradycardia, irregular rhythm, systolic murmur, diastolic murmur, rubs, gallop - GI/Abdominal GI/Abdominal exam: Present: soft. Absent: distended, tenderness, guarding, rebound, rigid, pulsatile mass - Rectal Rectal exam: Present: deferred - Extremities Exam Extremities exam: Present: full ROM, other (2+ pulses noted in the bilateral upper and lower extremities. There is no palpable cord. negative Homans sign. Muscular compartments are soft. The pelvis is stable.). Absent: normal inspection (Chronic excoriated lesions and eczematous lesions noted to the bilateral anterior lower extremities), calf tenderness - Back Exam Back exam: Present: normal inspection. Absent: tenderness, CVA tenderness (R), CVA tenderness (L), paraspinal tenderness, vertebral tenderness - Neurological Exam Neurological exam: Present: alert, other (No facial droop. Tongue midline. Extraocular movements intact bilaterally. Facial sensation intact to light touch in V1, V2, V3 distribution bilaterally. 5 and a 5 strength in 4 extremiti es. Sensation intact to light touch in 4 extremities.) - Psychiatric Psychiatric exam: Present: normal affect, normal mood - Skin Skin exam: Present: warm, dry, intact, normal color. Absent: rash ED Course Vital Signs 12/19/21 12/19/21 12/19/21 10:57 11:25 11:30 Temperature 98.2 F Pulse Rate 103 H Pulse Rate [ 107 H Bilateral Throughout] Respiratory 16 Rate Respiratory 18 Rate [Bilateral Throughout] Blood Pressure 142/78 [Left] O2 Sat by Pulse 100 96 Oximetry - Reevaluation(s) Reevaluation #1: 12/19/21 13:51 Differential diagnosis, include but not limited to: COPD exacerbation, pneumonia, bronchitis Assessment and plan: 51-year-old gentleman with probable COPD exacerbation. He denies DVT and pulmonary embolism risk factors, and I find him to be low risk by Wells criteria for pulmonary embolism, and he denies physical pain. He is initially awake and alert, and initially produces a peak flow of 130. He received albuterol and Atrovent, in addition to steroids and magnesium given in the field. Care team and respiratory therapy endorse that the patient appears to be slightly more confused. I have gone back to reevaluate the patient. He is awake and moving 4 extremities, and denies physical pain, but does appear to be slightly confused. I suspect hypercarbia. ABG is requested. He will be admitted to the medical service under the care of Dr. Leatha Jauregui He is currently awake and protecting his airway, and moving 4 extremities. 12/19/21 14:06 Arterial blood gas suggest respiratory acidosis, with partial metabolic compensation. PaO2 at 142. Decrease FiO2. Start BiPAP ED Medical Decision Making - Lab Data Result diagrams: 12/19/21 12:00 12/19/21 12:00 Vital Signs 12/19/21 12/19/21 12/19/21 10:57 11:25 11:30 Temperature 98.2 F Pulse Rate 103 H Pulse Rate [ 107 H Bilateral Throughout] Respiratory 16 Rate Respiratory 18 Rate [Bilateral Throughout] Blood Pressure 142/78 [Left] O2 Sat by Pulse 100 96 Oximetry Lab Results 12/19/21 12/19/21 Range/Units 12:00 12:00 WBC 8.8 (4.5-11.0) K/mm3 RBC 3.87 (3.65-5.03) M/mm3 Hgb 11.0 L (11.8-15.2) gm/dl Hct 33.9 L (35.5-45.6) % MCV 88 (84-94) fl MCH 29 (28-32) pg MCHC 33 (32-34) % RDW 14.7 (13.2-15.2) % Plt Count 247 (140-440) K/mm3 Sodium 144 (137-145) mmol/L Potassium 3.6 (3.6-5.0) mmol/L Chloride 97.0 L (98-107) mmol/L Carbon Dioxide 40 H (22-30) mmol/L Anion Gap 11 mmol/L BUN 6 L (9-20) mg/dL Creatinine 0.4 L (0.8-1.3) mg/dL Estimated GFR > 60 ml/min BUN/Creatinine Ratio 15 % Glucose 129 H (75-100) mg/dL Calcium 9.1 (8.4-10.2) mg/dL Magnesium 2.90 H (1.7-2.3) mg/dL - EKG Data -: EKG Interpreted by Ma EKG shows normal: sinus rhythm Rate: tachycardia - EKG Data 12/19/21 13:48 The EKG is interpreted at 11: 18 Sinus rhythm, tachycardia, rate 102 bpm. Normal axis, QTC 4 7 4 ms, normal P wave axis, and left ventricular hypertrophy. This is not a STEMI. - Radiology Data Radiology results: pending, report reviewed, image reviewed CHEST 1 VIEW INDICATION: cough wheezing dyepns. COMPARISON: 08/28/2019 FIN DINGS: SUPPORT DEVICES: None. HEART: Within normal limits. LUNGS/PLEURA: Emphysematous changes in the lungs again noted with probable scarring in the left lower lobe. No consolidation or effusion. ADDITIONAL FINDINGS: None. IMPRESSION: 1. No acute findings. Signer Name: Georgi Anderson MD Signed: 12/19/2021 11:05 AM Workstation Name: [id number] Critical Care Time: Yes Critical care time in (mins) excluding proc time.: 35 Critical care attestation.: If time is entered above; I have spent that time in minutes in the direct care of this critically ill patient, excluding procedure time. ED Disposition Clinical Impression: COPD with exacerbation, Respiratory acidosis Disposition: 09 ADMITTED INPATIENT Is pt being admited?: Yes Does the pt Need Aspirin: No Condition: Serious Instructions: Chronic Obstructive Pulmonary Disease (ED)
--- NOTE | 2021-12-19 12:10 | XRay Report ---
CHEST 1 VIEW INDICATION: cough wheezing dyepns. COMPARISON: 08/28/2019 FINDINGS: SUPPORT DEVICES: None. HEART: Within normal limits. LUNGS/PLEURA: Emphysematous changes in the lungs again noted with probable scarring in the left lower lobe. No consolidation or effusion. ADDITIONAL FINDINGS: None. IMPRESSION: 1. No acute findings. Signer Name: Georgi Anderson MD Signed: 12/19/2021 12:05 PM Workstation Name: [employer]
[2021-12-19 12:27] LABS: Hematocrit 33.9 % (35.5-45.6); Mean Corpuscular HGB Conc 33 % (32-34); Mean Corpuscular Volume 88 fl (84-94); Platelet Count 247 K/mm3 (140-440); Red Blood Count 3.87 M/mm3 (3.65-5.03); Red Cell Distribution Width 14.7 % (13.2-15.2)
[2021-12-19 12:48] LABS: Blood Urea Nitrogen 6 mg/dL (9-20); Calcium 9.1 mg/dL (8.4-10.2); Hemolysis Index 3
[2021-12-19 12:57] LABS: BUN/Creatinine Ratio 15
[2021-12-19 13:59] LABS: ABG Base Excess 15.3 mmol/L (-2.0-3.0); ABG HCO3 45.6 mmol/L (20.0-26.0); ABG Methemoglobin 0.7 % (0.0-1.5); ABG Oxygen Saturation 98.3 % (95.0-99.0); ABG PCO2 98.1 mm Hg; ABG PH 7.285 pH Units (7.350-7.450); ABG PO2 142.9 mm Hg (80.0-90.0)
[2021-12-19 14:23] LABS: INR 0.87 (0.87-1.13)
[2021-12-19] MEDS ORDERED: CYCLOBENZAPRINE 10 MG TAB PO PRN (15:56)
[2021-12-19] MEDS ORDERED: ACETAMINOPHEN 325 MG TAB PO PRN (15:57)
[2021-12-19] MEDS ORDERED: oxyCODONE /ACETAMINOPHEN 5-325MG TAB PO PRN (15:57)
[2021-12-19] MEDS ORDERED: ONDANSETRON 4 MG/2 ML INJ IV PRN (15:57)
[2021-12-19] MEDS ORDERED: METOCLOPRAMIDE 10 MG/2 ML INJ IV PRN (15:57)
[2021-12-19] MEDS ORDERED: SODIUM CHLORIDE 0.9% 1000 ML 1,000 ML IV SCH (16:00)
[2021-12-19] MEDS ORDERED: IBUPROFEN 600 MG TAB PO PRN (16:03)
[2021-12-19] MEDS ORDERED: IPRATROPIUM/ALBUTEROL SULFATE 3 ML AMPUL.NEB IH PRN (16:45)
[2021-12-19] MEDS ORDERED: cefTRIAXone/NS 2 GM/100 ML 2 GM/100 ML BAG IV SCH (17:00)
[2021-12-19] MEDS ORDERED: AZITHROMYCIN/NS 500 MG/250 ML 500 MG/250 ML BAG IV SCH ×2 (17:00→18:00)
[2021-12-19] MEDS ORDERED: ALBUTEROL 2.5 MG/3 ML NEBU IH PRN (17:04)
[2021-12-19] MEDS: methylPREDNISolone Sod Succinate 125 MG/2 ML INJ IV SCH (18:52)
[2021-12-19] MEDS: cefTRIAXone/NS 2 GM/100 ML 2 GM/100 ML BAG IV SCH (18:52)
[2021-12-19] MEDS: LORazepam 2 MG/ML VIAL IV PRN (18:54)
[2021-12-19] MEDS: BUDESONIDE 0.5 MG/2 ML NEBU IH SCH (19:47)
[2021-12-19] MEDS: IPRATROPIUM/ALBUTEROL SULFATE 3 ML AMPUL.NEB IH SCH (19:47)
[2021-12-19] MEDS: HEPARIN 5,000 UNIT/1 ML VIAL SUB-Q SCH (21:59)
[2021-12-19] MEDS: FAMOTIDINE 20 MG TAB PO SCH (21:59)
[2021-12-20] MEDS: methylPREDNISolone Sod Succinate 125 MG/2 ML INJ IV SCH ×2 (01:38→10:15)
[2021-12-20 05:10] LABS: Basophils % (Auto) 0.4 % (0.0-1.8); Hematocrit 35.3 % (35.5-45.6); Lymphocytes # (Auto) 0.5 K/mm3 (1.2-5.4); Lymphocytes % (Auto) 15.8 % (13.4-35.0); Mean Corpuscular HGB Conc 31 % (32-34); Mean Corpuscular Volume 89 fl (84-94); Monocytes % (Auto) 0.8 % (0.0-7.3); Platelet Count 265 K/mm3 (140-440); Red Blood Count 3.97 M/mm3 (3.65-5.03); Red Cell Distribution Width 14.9 % (13.2-15.2)
[2021-12-20 05:27] LABS: BUN/Creatinine Ratio 18; Blood Urea Nitrogen 7 mg/dL (9-20); Hemolysis Index 153
--- NOTE | 2021-12-20 06:02 | History and Physical Report ---
History of Present Illness Date of examination: 12/19/21 Date of admission: 12/19/21 15:57 Chief complaint: Increasing shortness of breath for 2 days History of present illness: 51-year-old male with history of nicotine dependence and COPD on home oxygen at 3 liters comes in for increasing shortness of breath and wheezing and cough productive of mucoid sputum. No fever or chills. In spite of Home oxygen and nebulizer treatments patient is very short of breath. Using accessory muscles of respiration. EMS was called and patient was given IV Solu-Medrol and IV magnesium. No improvement. Patient typically follows at [facility]. No recent travels history. ED course patient was hypoxic and very short of breath because of which patient had to be put on BiPAP. Patient was also hypercarbic. - Past Medical History --Hypertension: Yes --Congestive Heart Failure: Yes --Asthma: Yes --COPD: Yes (Emphysema Stage IV Home 02 3L prn) --Additional medical history: Tackycardia - Surgical History --Additional Surgical History: tendon in right hand fixed - Social History --Smoking Status: Current Every Day Smoker - Medications --Home Medications: Home Medications Medication Instructions Recorded Confirmed Last Taken Type Ipratropium/Albuter (Nf) 2 puff IH QID #1 inha 10/14/18 Unknown Rx [Combivent (Nf)] Cyclobenzaprine [Flexeril] 10 mg PO Q8H PRN #15 tablet 02/07/19 Unknown Rx Ibuprofen [Motrin] 600 mg PO Q8H PRN #20 tablet 02/07/19 Unknown Rx Albuterol Mdi (or & Nicu Only) 2 puff IH QID PRN #1 inhalation 05/18/19 Unknown Rx [ProAir HFA Inhaler] Prednisone [predniSONE 10 mg 10 mg PO .TAPER #1 tab.ds.pk 05/18/19 Unknown Rx (6-Day Pack, 21 Tabs)] levoFLOXacin [Levaquin TAB] 500 mg PO QDAY #7 tablet 05/18/19 Unknown Rx Albuterol Mdi (or & Nicu Only) 2 puff IH Q4HR PRN #1 inhalation 08/28/19 Unknown Rx [ProAir HFA Inhaler] Albuterol Sulfate [Albuterol 0.63% 0.63 mg IH Q4HR PRN #30 ml 08/28/19 Unknown Rx NEBS] levoFLOXacin [Levaquin] 750 mg PO QDAY #7 tablet 08/28/19 Unknown Rx Review of Systems ROS: Stated complaint: JIMMY Other details as noted in HPI Comment: All other systems reviewed and negative Respiratory: cough, shortness of breath, SOB with exertion, SOB at rest, wheezing Cardiovascular: denies: chest pain Gastrointestinal: denies: abdominal pain, melena, hematochezia Neurological: denies: weakness Medications and Allergies Allergies Allergy/AdvReac Type Severity Reaction Status Date / Time No Known Allergies Allergy Verified 12/19/21 11:03 Home Medications Medication Instructions Recorded Confirmed Last Taken Type Ipratropium/Albuter (Nf) 2 puff IH QID #1 inha 10/14/18 Unknown Rx [Combivent (Nf)] Cyclobenzaprine [Flexeril] 10 mg PO Q8H PRN #15 tablet 02/07/19 Unknown Rx Ibuprofen [Motrin] 600 mg PO Q8H PRN #20 tablet 02/07/19 Unknown Rx Albuterol Mdi (or & Nicu Only) 2 puff IH QID PRN #1 inhalation 05/18/19 Unknown Rx [ProAir HFA Inhaler] Prednisone [predniSONE 10 mg 10 mg PO .TAPER #1 tab.ds.pk 05/18/19 Unknown Rx (6-Day Pack, 21 Tabs)] levoFLOXacin [Levaquin TAB] 500 mg PO QDAY #7 tablet 05/18/19 Unknown Rx Albuterol Mdi (or & Nicu Only) 2 puff IH Q4HR PRN #1 inhalation 08/28/19 Unknown Rx [ProAir HFA Inhaler] Albuterol Sulfate [Albuterol 0.63% 0.63 mg IH Q4HR PRN #30 ml 08/28/19 Unknown Rx NEBS] levoFLOXacin [Levaquin] 750 mg PO QDAY #7 tablet 08/28/19 Unknown Rx Active Meds: Active Medications Acetaminophen (Acetaminophen 325 Mg Tab) 650 mg PO Q4H PRN PRN Reason: Pain MILD(1-3)/Fever >100.5/BENITEZ Albuterol (Albuterol 2.5 Mg/3 Ml Nebu) 2.5 mg IH Q4HRT PRN PRN Reason: Shortness Of Breath Albuterol/Ipratropium (Ipratropium/Albuterol Sulfate 3 Ml Ampul.Neb) 1 ampul IH QIDRT [facility] Last Admin: 12/19/21 19:47 Dose: 1 ampul Budesonide (Budesonide 0.5 Mg/2 Ml Nebu) 0.5 mg IH Q12HRT [facility] Last Admin: 12/19/21 19:47 Dose: 0.5 mg Cyclobenzaprine HCl (Cyclobenzaprine 10 Mg Tab) 10 mg PO Q8H PRN PRN Reason: Muscle Spasm Famotidine (Famotidine 20 Mg Tab) 20 mg PO BID [facility] Last Admin: 12/19/21 21:59 Dose: 20 mg Heparin Sodium (Porcine) (Heparin 5,000 Unit/1 Ml Vial) 5,000 unit SUB-Q Q12HR [facility] Last Admin: 12/19/21 21:59 Dose: 5,000 unit Sodium Chloride (Nacl 0.9% 1000 Ml) 1,000 mls @ 42 mls/hr IV DIRECT MATT Ceftriaxone Sodium (Rocephin/Ns 2 Gm/100 Ml) 2 gm in 100 mls @ 200 mls/hr IV Q24H [facility]; Protocol Last Admin: 12/19/21 18:52 Dose: 200 mls/hr Azithromycin (Zithromax/Ns) 500 mg in 250 mls @ 250 mls/hr IV Q24H [facility] Last Admin: 12/19/21 22:46 Dose: Not Given Ibuprofen (Ibuprofen 600 Mg Tab) 600 mg PO Q8H PRN PRN Reason: Pain, Mild (1-3) Lorazepam (Lorazepam 2 Mg/Ml Vial) 1 mg IV Q3H PRN PRN Reason: Agitation Last Admin: 12/19/21 18:54 Dose: 1 mg Methylprednisolone Sodium Succinate (Methylprednisolone Sod Succinate 125 Mg/2 Ml Inj) 125 mg IV Q8H [facility] Last Admin: 12/20/21 01:38 Dose: 125 mg Metoclopramide HCl (Metoclopramide 10 Mg/2 Ml Inj) 10 mg IV Q6H PRN PRN Reason: Nausea And Vomiting Ondansetron HCl (Ondansetron 4 Mg/2 Ml Inj) 4 mg IV Q8H PRN PRN Reason: Nausea And Vomiting Oxycodone/Acetaminophen (Oxycodone /Acetaminophen 5-325mg Tab) 1 tab PO Q6H PRN PRN Reason: Pain, Moderate (4-6) Sodium Chloride (Sodium Chloride 0.9% 10 Ml Flush Syringe) 10 ml IV BID MATT Last Admin: 12/19/21 21:59 Dose: 10 ml Sodium Chloride (Sodium Chloride 0.9% 10 Ml Flush Syringe) 10 ml IV PRN PRN PRN Reason: LINE FLUSH Exam - Constitutional Vitals: Temp Pulse Resp BP Pulse Ox 97.6 F 91 H 18 115/74 100 12/20/21 04:00 12/20/21 05:00 12/20/21 05:00 12/20/21 05:00 12/20/21 05:00 General appearance: Present: severe distress, well-nourished - EENT Eyes: Present: PERRL ENT: hearing intact, clear oral mucosa - Neck Neck: Present: supple, normal ROM - Respiratory Respiratory effort: normal Respiratory: bilateral: diminished, rhonchi, wheezing - Cardiovascular Heart rate: 78 Rhythm: regular Heart Sounds: Present: S1 & S2. Absent: rub, click - Extremities Extremities: pulses symmetrical, No edema Peripheral Pulses: within normal limits - Abdominal General gastrointestinal: Present: soft, non-tender, non-distended, normal bowel sounds Male genitourinary: Present: normal - Rectal Rectal Exam: deferred - Integumentary Integumentary: Present: clear, warm, dry - Musculoskeletal Musculoskeletal: gait normal, strength equal bilaterally - Psychiatric Psychiatric: appropriate mood/affect, intact judgment & insight - Neurologic Neurologic: CNII-XII intact, moves all extremities - Allied Health Allied health notes reviewed: nursing, case management Results - Labs CBC & Chem 7: 12/20/21 04:41 12/20/21 04:41 Labs: Laboratory Last Values WBC 2.9 K/mm3 (4.5-11.0) L 12/20/21 04:41 RBC 3.97 M/mm3 (3.65-5.03) 12/20/21 04:41 Hgb 11.0 gm/dl (11.8-15.2) L 12/20/21 04:41 Hct 35.3 % (35.5-45.6) L 12/20/21 04:41 MCV 89 fl (84-94) 12/20/21 04:41 MCH 28 pg (28-32) 12/20/21 04:41 MCHC 31 % (32-34) L 12/20/21 04:41 RDW 14.9 % (13.2-15.2) 12/20/21 04:41 Plt Count 265 K/mm3 (140-440) 12/20/21 04:41 Lymph % (Auto) 15.8 % (13.4-35.0) 12/20/21 04:41 Miller % (Auto) 0.8 % (0.0-7.3) 12/20/21 04:41 Eos % (Auto) 0.0 % (0.0-4.3) 12/20/21 04:41 Baso % (Auto) 0.4 % (0.0-1.8) 12/20/21 04:41 Lymph # (Auto) 0.5 K/mm3 (1.2-5.4) L 12/20/21 04:41 Miller # (Auto) 0.0 K/mm3 (0.0-0.8) 12/20/21 04:41 Eos # (Auto) 0.0 K/mm3 (0.0-0.4) 12/20/21 04:41 Baso # (Auto) 0.0 K/mm3 (0.0-0.1) 12/20/21 04:41 Seg Neutrophils % 83.0 % (40.0-70.0) H 12/20/21 04:41 Seg Neutrophils # 2.4 K/mm3 (1.8-7.7) 12/20/21 04:41 PT 12.7 Sec. (12.2-14.9) 12/19/21 12:00 INR 0.87 (0.87-1.13) 12/19/21 12:00 ABG pH 7.285 pH Units (7.350-7.450) L 12/19/21 13:35 ABG pCO2 98.1 mm Hg 12/19/21 13:35 ABG pO2 142.9 mm Hg (80.0-90.0) H 12/19/21 13:35 ABG HCO3 45.6 mmol/L (20.0-26.0) H 12/19/21 13:35 ABG O2 Saturation 98.3 % (95.0-99.0) 12/19/21 13:35 ABG O2 Content 15.0 (0.0-44) 12/19/21 13:35 ABG Base Excess 15.3 mmol/L (-2.0-3.0) H 12/19/21 13:35 ABG Hemoglobin 11.0 gm/dl (14.0-18.0) L 12/19/21 13:35 ABG Carboxyhemoglobin 2.7 % (0.0-5.0) 12/19/21 13:35 ABG Methemoglobin 0.7 % (0.0-1.5) 12/19/21 13:35 Oxyhemoglobin 95.0 % (95.0-99.0) 12/19/21 13:35 FiO2 32 % 12/19/21 13:35 Sodium 144 mmol/L (137-145) 12/20/21 04:41 Potassium 5.8 mmol/L (3.6-5.0) H D 12/20/21 04:41 Chloride 97.9 mmol/L (98-107) L 12/20/21 04:41 Carbon Dioxide 39 mmol/L (22-30) H 12/20/21 04:41 Anion Gap 13 mmol/L 12/20/21 04:41 BUN 7 mg/dL (9-20) L 12/20/21 04:41 Creatinine 0.4 mg/dL (0.8-1.3) L 12/20/21 04:41 Estimated GFR > 60 ml/min 12/20/21 04:41 BUN/Creatinine Ratio 18 % 12/20/21 04:41 Glucose 128 mg/dL (75-100) H 12/20/21 04:41 Calcium 9.0 mg/dL (8.4-10.2) 12/20/21 04:41 Magnesium 2.90 mg/dL (1.7-2.3) H 12/19/21 12:00 - Imaging and Cardiology Chest x-ray: report reviewed (No acute findings) Assessment and Plan Advance Directives: Yes (Full code) VTE prophylaxis?: Chemical Plan of care discussed with patient/family: Yes - Patient Problems (1) Acute respiratory failure with hypoxia and hypercarbia Current Visit: Yes Status: Acute Plan to address problem: Patient has severe hypercapnia Arterial pH of 7.25 PCO2 of 98 PO2 of 142 on oxygen and bicarb of 45.6 Patient on BiPAP and intubation if necessary. Admit to IMCU. IV Solu-Medrol 125 every 8 IV Zithromax and Rocephin. Duo nebs [id number] and every 3 as needed. Discharge assessment and treatment. Pulmonary consult requested. (2) COPD with exacerbation Current Visit: Yes Status: Acute Plan to address problem: Continue IV Solu-Medrol, IV antibiotics and duo nebs [id number] and as needed. Intubation if necessary. Respiratory assessment and treatment. Patient is on 3 L and has nasal cannula oxygen at home. (3) Muscle spasm Current Visit: Yes Status: Acute Plan to address problem: On Flexeril (4) DVT prophylaxis Current Visit: Yes Status: Acute Plan to address problem: On anticoagulation GI prophylaxis (5) Advance care planning Current Visit: Yes Status: Acute Plan to address problem: Disease education conducted, care plan discussed, diagnosis discussed and patient acknowledges understanding. With care plan. +30 minutes.
[2021-12-20] MEDS ORDERED: CALCIUM GLUCONATE 2,000 MG in SODIUM CHLORIDE 0.9% 100 ML IV ONE (06:18)
[2021-12-20] MEDS: IPRATROPIUM/ALBUTEROL SULFATE 3 ML AMPUL.NEB IH SCH ×3 (07:36→21:42)
[2021-12-20] MEDS: BUDESONIDE 0.5 MG/2 ML NEBU IH SCH (07:37)
[2021-12-20] MEDS ORDERED: ALBUTEROL 2.5 MG/3 ML NEBU IH PRN (07:48)
--- NOTE | 2021-12-20 08:40 | Electrocardiograph Report ---
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
[2021-12-20] MEDS: HEPARIN 5,000 UNIT/1 ML VIAL SUB-Q SCH (10:15)
[2021-12-20] MEDS: FAMOTIDINE 20 MG TAB PO SCH (10:16)
[2021-12-20] MEDS ORDERED: AZITHROMYCIN 250 MG TAB PO SCH (12:00)
[2021-12-20] MEDS: LORazepam 2 MG/ML VIAL IV PRN (12:12)
--- NOTE | 2021-12-20 12:50 | Consultation ---
History of Present Illness Consult date: 12/20/21 Medications and Allergies Allergies Allergy/AdvReac Type Severity Reaction Status Date / Time No Known Allergies Allergy Verified 12/19/21 11:03 Home Medications Medication Instructions Recorded Confirmed Last Taken Type Ipratropium/Albuter (Nf) 2 puff IH QID #1 inha 10/14/18 Unknown Rx [Combivent (Nf)] Cyclobenzaprine [Flexeril] 10 mg PO Q8H PRN #15 tablet 02/07/19 Unknown Rx Ibuprofen [Motrin] 600 mg PO Q8H PRN #20 tablet 02/07/19 Unknown Rx Albuterol Mdi (or & Nicu Only) 2 puff IH QID PRN #1 inhalation 05/18/19 Unknown Rx [ProAir HFA Inhaler] Prednisone [predniSONE 10 mg 10 mg PO .TAPER #1 tab.ds.pk 05/18/19 Unknown Rx (6-Day Pack, 21 Tabs)] levoFLOXacin [Levaquin TAB] 500 mg PO QDAY #7 tablet 05/18/19 Unknown Rx Albuterol Mdi (or & Nicu Only) 2 puff IH Q4HR PRN #1 inhalation 08/28/19 Unknown Rx [ProAir HFA Inhaler] Albuterol Sulfate [Albuterol 0.63% 0.63 mg IH Q4HR PRN #30 ml 08/28/19 Unknown Rx NEBS] levoFLOXacin [Levaquin] 750 mg PO QDAY #7 tablet 08/28/19 Unknown Rx Active Meds: Active Medications Acetaminophen (Acetaminophen 325 Mg Tab) 650 mg PO Q4H PRN PRN Reason: Pain MILD(1-3)/Fever >100.5/BENITEZ Albuterol (Albuterol 2.5 Mg/3 Ml Nebu) 2.5 mg IH Q4HRT PRN PRN Reason: Shortness Of Breath Last Admin: 12/20/21 11:37 Dose: 2.5 mg Albuterol/Ipratropium (Ipratropium/Albuterol Sulfate 3 Ml Ampul.Neb) 1 ampul IH TIDRT MATT Arformoterol Tartrate (Arformoterol 15 Mcg/2 Ml Nebu) 15 mcg IH Q12HRT MATT Azithromycin (Azithromycin 250 Mg Tab) 500 mg PO DAILY [facility]; Protocol Stop: 12/24/21 10:01 Last Admin: 12/20/21 12:06 Dose: 500 mg Budesonide (Budesonide 0.5 Mg/2 Ml Nebu) 0.5 mg IH Q12HRT [facility] Cyclobenzaprine HCl (Cyclobenzaprine 10 Mg Tab) 10 mg PO Q8H PRN PRN Reason: Muscle Spasm Famotidine (Famotidine 20 Mg Tab) 20 mg PO BID [facility] Last Admin: 12/20/21 10:16 Dose: 20 mg Heparin Sodium (Porcine) (Heparin 5,000 Unit/1 Ml Vial) 5,000 unit SUB-Q Q12HR MATT Last Admin: 12/20/21 10:15 Dose: 5,000 unit Sodium Chloride (Nacl 0.9% 1000 Ml) 1,000 mls @ 42 mls/hr IV DIRECT MATT Ceftriaxone Sodium (Rocephin/Ns 2 Gm/100 Ml) 2 gm in 100 mls @ 200 mls/hr IV Q24H [facility]; Protocol Last Infusion: 12/19/21 19:22 Dose: Infused Lorazepam (Lorazepam 2 Mg/Ml Vial) 1 mg IV Q3H PRN PRN Reason: Agitation Last Admin: 12/20/21 12:12 Dose: 1 mg Methylprednisolone Sodium Succinate (Methylprednisolone Sod Succinate 40 Mg/1 Ml Inj) 40 mg IV Q8HR [facility] Metoclopramide HCl (Metoclopramide 10 Mg/2 Ml Inj) 10 mg IV Q6H PRN PRN Reason: Nausea And Vomiting Ondansetron HCl (Ondansetron 4 Mg/2 Ml Inj) 4 mg IV Q8H PRN PRN Reason: Nausea And Vomiting Oxycodone/Acetaminophen (Oxycodone /Acetaminophen 5-325mg Tab) 1 tab PO Q6H PRN PRN Reason: Pain, Moderate (4-6) Sodium Chloride (Sodium Chloride 0.9% 10 Ml Flush Syringe) 10 ml IV BID [facility] Last Admin: 12/20/21 10:16 Dose: 10 ml Sodium Chloride (Sodium Chloride 0.9% 10 Ml Flush Syringe) 10 ml IV PRN PRN PRN Reason: LINE FLUSH Physical Examination Vital signs: Vital Signs Temp Pulse Resp BP Pulse Ox 98.2 F 103 H 16 142/78 100 12/19/21 10:57 12/19/21 10:57 12/19/21 10:57 12/19/21 10:57 12/19/21 10:57 Results - Laboratory Findings CBC and BMP: 12/20/21 04:41 12/20/21 05:52 ABG ABG pH 7.285 pH Units (7.350-7.450) L 12/19/21 13:35 ABG pCO2 98.1 mm Hg 12/19/21 13:35 ABG pO2 142.9 mm Hg (80.0-90.0) H 12/19/21 13:35 ABG O2 Saturation 98.3 % (95.0-99.0) 12/19/21 13:35 PT/INR, D-dimer PT 12.7 Sec. (12.2-14.9) 12/19/21 12:00 INR 0.87 (0.87-1.13) 12/19/21 12:00 Abnormal lab findings: Abnormal Labs 12/19/21 12/19/21 12/19/21 12:00 12:00 13:35 WBC Hgb 11.0 L Hct 33.9 L MCHC Lymph # (Auto) Seg Neutrophils % ABG pH 7.285 L ABG pO2 142.9 H ABG HCO3 45.6 H ABG Base Excess 15.3 H ABG Hemoglobin 11.0 L Potassium Chloride 97.0 L Carbon Dioxide 40 H BUN 6 L Creatinine 0.4 L Glucose 129 H Magnesium 2.90 H 12/20/21 12/20/21 04:41 04:41 WBC 2.9 L Hgb 11.0 L Hct 35.3 L MCHC 31 L Lymph # (Auto) 0.5 L Seg Neutrophils % 83.0 H ABG pH ABG pO2 ABG HCO3 ABG Base Excess ABG Hemoglobin Potassium 5.8 H D Chloride 97.9 L Carbon Dioxide 39 H BUN 7 L Creatinine 0.4 L Glucose 128 H Magnesium
--- NOTE | 2021-12-20 14:01 | Discharge Summary ---
Providers - Providers Date of Admission: 12/19/21 15:57 Date of discharge: 12/20/21 Attending physician: BOSTON HYMAN MD 12/19/21 16:56 Consult to Physician [CONS] Routine Comment: Consulting Provider: ANGEL LUIS TEIXEIRA Physician Instructions: Reason For Exam: COPD Exacerbation Primary care physician: EMERGENCY RESPONSE COORDINATOR Hospitalization Reason for admission: shortness of breath Condition: Serious Hospital course: History of present illness: 51-year-old male with history of nicotine dependence and COPD on home oxygen at 3 liters comes in for increasing shortness of breath and wheezing and cough productive of mucoid sputum. No fever or chills. In spite of Home oxygen and nebulizer treatments patient is very short of breath. Using accessory muscles of respiration. EMS was called and patient was given IV Solu-Medrol and IV magnesium. No improvement. Patient typically follows at [facility]. No recent travels history. ED course patient was hypoxic and very short of breath because of which patient had to be put on BiPAP. Patient was also hypercarbic. Hospital Course; 12/20: Patient was admitted for COPD exacerbation. He was initiated on supportive therapy with BiPAP for supplemental oxygen as well as IV Solu-Medrol and IV magnesium. He was also started on azithromycin and Rocephin. He was given [id number] nebulizer therapy. He subsequently improved by the time of my encounter this morning. He is optimized to nasal cannula 2 L/min. He states he feels significantly improved compared to yesterday. Patient will be discharged home today. He will be given prescriptions for Levaquin, steroid taper, Combivent, albuterol prn. 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 Assessment and Plan: (1) Acute respiratory failure with hypoxia and hypercarbia Current Visit: Yes Status: Acute Plan to address problem: Patient has severe hypercapnia Arterial pH of 7.25 PCO2 of 98 PO2 of 142 on oxygen and bicarb of 45.6 Patient on BiPAP and intubation if necessary. Admit to IMCU. IV Solu-Medrol 125 every 8 IV Zithromax and Rocephin. Duo nebs [id number] and every 3 as needed. Discharge assessment and treatment. Pulmonary consult requested. (2) COPD with exacerbation Current Visit: Yes Status: Acute Plan to address problem: Continue IV Solu-Medrol, IV antibiotics and duo nebs [id number] and as needed. Intubation if necessary. Respiratory assessment and treatment. Patient is on 3 L and has nasal cannula oxygen at home. (3) Muscle spasm Current Visit: Yes Status: Acute Plan to address problem: On Flexeril (4) DVT prophylaxis Current Visit: Yes Status: Acute Plan to address problem: On anticoagulation GI prophylaxis (5) Advance care planning Current Visit: Yes Status: Acute Plan to address problem: Disease education conducted, care plan discussed, diagnosis discussed and patient acknowledges understanding. With care plan. +30 minutes. Disposition: HOME / SELF CARE / HOMELESS Final Discharge Diagnosis (Prints w/discharge instructions): copd exacerbation Time spent for discharge: 35 Core Measure Documentation - Palliative Care Palliative Care/ Comfort Measures: Not Applicable - Core Measures Any of the following diagnoses?: none Exam - Physical Exam Narrative exam: Physical Exam: VITAL SIGNS: Reviewed. GENERAL: The patient appears normally developed, Vital signs as documented. On home 2 L HEAD: No signs of head trauma. EYES: Pupils are equal. Extraocular motions intact. EARS: Hearing grossly intact. MOUTH: Oropharynx is normal. NECK: No adenopathy, no JVD. CHEST: Poor air movement. Interval improvement on lung exam however CARDIAC: Regular rate and rhythm. S1 and S2, without murmurs, gallops, or rubs. VASCULAR: No Edema. Peripheral pulses normal and equal in all extremities. ABDOMEN: Soft, non tender and non distended. No rebound or guarding, and no masses palpated. Bowel Sounds normal. MUSCULOSKELETAL: Good range of motion of all major joints. Extremities without clubbing, cyanosis or edema. NEUROLOGIC EXAM: Alert and oriented x 4. no focal sensory or strength deficits. PSYCHIATRIC: Mood normal. SKIN: detail exam as documented in skin assessment - Constitutional Vitals: Temp Pulse Resp BP Pulse Ox 97.4 F L 114 H 25 H 128/78 100 12/20/21 11:17 12/20/21 13:30 12/20/21 13:30 12/20/21 13:30 12/20/21 13:30 Plan Follow up with: PRIMARY CARE, [Primary Care Provider] - 7 Days
--- NOTE | 2021-12-20 14:17 | Event Note ---
Date: 12/20/21 Patient found aggitated and shivering by RN. Patient was given Ativan 1mg prior to episode. Ativan d/c, replaced with haldol for aggitation. Left eye was protroding from eye socket and patient was very stiff. I was able to reduce eye back into socket. Unclear cause for change in LOC. Ordered stat CT brain, CMP, CBC, TSH. Discharge cancelled. Will continue to monitor in IMCU.
[2021-12-20] MEDS ORDERED: HALOPERIDOL LACTATE 5 MG/1 ML INJ IM PRN (14:50)
--- NOTE | 2021-12-20 15:01 | Cat Scan Report ---
CT HEAD WITHOUT CONTRAST INDICATION / CLINICAL INFORMATION: Decreased LOC. TECHNIQUE: Axial imaging performed from the skull apex through the skull base without the use of cont rast. Sagittal and coronal reformatted images. All CT scans at this location are performed using CT dose reduction for ALARA by means of automated exposure control. COMPARISON: None available. FINDINGS: CEREBRAL PARENCHYMA: No significant abnormality. No acute territorial infarct. HEMORRHAGE: None. EXTRA-AXIAL SPACES: Normal in size and morphology for the patient's age. VENTRICULAR SYSTEM: Normal in size and morphology for the patient's age. MIDLINE SHIFT OR HERNIATION: None. CEREBELLUM / BRAINSTEM: No significant abnormality. CALVARIUM: No significant abnormality. ORBITS: Normal as visualized. PARANASAL SINUSES / MASTOID AIR CELLS: Normal as visualized. SOFT TISSUES of HEAD: No significant abnormality. ADDITIONAL FINDINGS: None. IMPRESSION: No acute intracranial abnormality. Signer Name: Mich Masterson Jr, MD Signed: 12/20/2021 2:56 PM Workstation Name: [id number]
[2021-12-20 16:22] LABS: Basophils % (Auto) 0.3 % (0.0-1.8); Hematocrit 30.7 % (35.5-45.6); Hemoglobin 10.1 gm/dl (11.8-15.2); Lymphocytes # (Auto) 0.5 K/mm3 (1.2-5.4); Lymphocytes % (Auto) 10.2 % (13.4-35.0); Mean Corpuscular HGB Conc 33 % (32-34); Mean Corpuscular Volume 87 fl (84-94); Monocytes # (Auto) 0.3 K/mm3 (0.0-0.8); Monocytes % (Auto) 5.4 % (0.0-7.3); Platelet Count 226 K/mm3 (140-440); Red Blood Count 3.52 M/mm3 (3.65-5.03); Red Cell Distribution Width 14.7 % (13.2-15.2)
[2021-12-20 16:40] LABS: Alanine Aminotransferase 9 units/L (7-56); Albumin 3.5 g/dL (3.9-5); Blood Urea Nitrogen 12 mg/dL (9-20); Calcium 8.8 mg/dL (8.4-10.2); Hemolysis Index 4
[2021-12-20 16:43] LABS: BUN/Creatinine Ratio 30
[2021-12-20] MEDS: cefTRIAXone/NS 2 GM/100 ML 2 GM/100 ML BAG IV SCH (17:24)
[2021-12-20 17:35] LABS: ABG Base Excess 17.7 mmol/L (-2.0-3.0); ABG HCO3 48.5 mmol/L (20.0-26.0); ABG Methemoglobin 0.4 % (0.0-1.5); ABG Oxygen Saturation 97.1 % (95.0-99.0); ABG PH 7.263 pH Units (7.350-7.450); ABG PO2 94.2 mm Hg (80.0-90.0)
[2021-12-20] MEDS ORDERED: BUDESONIDE 0.5 MG/2 ML NEBU IH SCH (20:00)
[2021-12-20] MEDS ORDERED: ARFORMOTEROL 15 MCG/2 ML NEBU IH SCH (20:00)
[2021-12-20 21:47] VITALS: BP 134/85
[2021-12-20] MEDS ORDERED: methylPREDNISolone Sod Succinate 40 MG/1 ML INJ IV SCH (22:00)
== END 2021-12-20 21:49 | disposition left against medical advice (07) | DRG 189 ==
LOC: ED 10:53 → IMCU 15:57
PROVIDERS: ADMIT Internal Medicine; ATTEND Internal Medicine
PROC: 4A033R1 Measurement of Arterial Saturation, Peripheral, Percutaneous Approach (ICD-10-PCS; principal; 2021-12-19)
PROC: 5A09457 Assistance with Respiratory Ventilation, 24-96 Consecutive Hours, Continuous Positive Airway Pressure (ICD-10-PCS; 2021-12-19)
DX: J96.01 Acute respiratory failure with hypoxia (principal); E87.2 Acidosis; M62.838 Other muscle spasm; Z20.822 Contact with and (suspected) exposure to COVID-19; J96.02 Acute respiratory failure with hypercapnia; Z53.29 Procedure and treatment not carried out because of patient's decision for other reasons; I11.0 Hypertensive heart disease with heart failure; I50.9 Heart failure, unspecified; J43.9 Emphysema, unspecified; F17.200 Nicotine dependence, unspecified, uncomplicated
CPT/HCPCS: 36415; 36600; 70450; 71045; 80048; 80053; 82803; 83735; 84132; 84439; 84443; 84481; 85025; 85027; 85610; 93005; 94640; 94644; 94760; G0378; J0696; J1644; J1956; J2060; J2930; J7120; U0003

== ENCOUNTER 2022-01-17 23:35 | Emergency (ER) | payer MEDICARE ==
[2022-01-18] MEDS ORDERED: ALBUTEROL 2.5 MG/3 ML NEBU IH ONE (00:23)
[2022-01-18] MEDS ORDERED: SODIUM CHLORIDE 0.9% 500 ML 500 ML IV ONE (00:23)
[2022-01-18] MEDS ORDERED: IPRATROPIUM 0.02% NEBU 2.5 ML IH ONE (00:23)
[2022-01-18] MEDS ORDERED: methylPREDNISolone Sod Succinate 125 MG/2 ML INJ IV ONE (00:23)
--- NOTE | 2022-01-18 00:44 | XRay Report ---
CHEST 1 VIEW 01/17/2022 11:34 PM INDICATION / CLINICAL INFORMATION: Dyspnea. COMPARISON: 12/19/2021 FINDINGS: Emphysematous changes in lungs with hyperinflation airways. Probable scarring in the left lower lung is again seen IMPRESSION: 1. No significant interval change Signer Name: Surya Ruiz MD Signed: 01/18/2022 12:39 AM Workstation Name: [id number]
[2022-01-18 01:42] LABS: Creatine Kinase MB 4.5 ng/mL (0.0-4.0)
[2022-01-18 01:43] LABS: Alanine Aminotransferase 11 units/L (7-56); Albumin 3.9 g/dL (3.9-5); Blood Urea Nitrogen 6 mg/dL (9-20); Calcium 9.4 mg/dL (8.4-10.2); Hemolysis Index 3
[2022-01-18 02:12] LABS: BUN/Creatinine Ratio 15
[2022-01-18 02:51] LABS: Hematocrit 31.7 % (35.5-45.6); Hemoglobin 10.4 gm/dl (11.8-15.2); Mean Corpuscular HGB Conc 33 % (32-34); Mean Corpuscular Volume 87 fl (84-94); Platelet Count 281 K/mm3 (140-440); Red Blood Count 3.63 M/mm3 (3.65-5.03); Red Cell Distribution Width 14.4 % (13.2-15.2)
[2022-01-18 03:03] LABS: INR 0.97 (0.87-1.13)
[2022-01-18 03:49] LABS: ABG Base Excess 18.6 mmol/L (-2.0-3.0); ABG HCO3 49.7 mmol/L (20.0-26.0); ABG Methemoglobin 0.5 % (0.0-1.5); ABG Oxygen Saturation 98.5 % (95.0-99.0); ABG PCO2 114.7 mm Hg; ABG PH 7.254 pH Units (7.350-7.450); ABG PO2 156.5 mm Hg (80.0-90.0)
[2022-01-18 04:35] LABS: Amphetamine Screen,Urine PRESUMPTIVE NEGATIVE; Benzodiazepines Screen,Urine PRESUMPTIVE NEGATIVE; Cannabinoid Screen,Urine PRESUMPTIVE NEGATIVE; Cocaine Screen,Urine PRESUMPTIVE NEGATIVE; Methadone Screen,Urine PRESUMPTIVE NEGATIVE; Opiate Screen,Urine PRESUMPTIVE NEGATIVE
[2022-01-18 05:36] LABS: Mucus,Urine FEW /HPF
--- NOTE | 2022-01-18 05:43 | Emergency Department Report ---
ED General Adult HPI - General Chief complaint: Dyspnea/Respdistress Stated complaint: SOB PUI?: No Time Seen by Provider: 01/18/22 00:22 Source: patient, EMS Mode of arrival: Stretcher Limitations: No Limitations - History of Present Illness Initial comments: JIMMY all day and no relief from Nebulizer. O2 dependent 3L/NC. -: Gradual, days(s) Location: chest Consistency: constant Improves with: none Worsens with: none Associated Symptoms: chest pain, cough, shortness of breath - Related Data Previous Rx's Medication Instructions Recorded Last Taken Type Cyclobenzaprine [Flexeril] 10 mg PO Q8H PRN #15 tablet 02/07/19 Unknown Rx Ibuprofen [Motrin] 600 mg PO Q8H PRN #20 tablet 02/07/19 Unknown Rx Albuterol Mdi (or & Nicu Only) 2 puff IH QID PRN #1 inhalation 05/18/19 Unknown Rx [ProAir HFA Inhaler] Albuterol Sulfate [Albuterol 0.63% 0.63 mg IH Q4HR PRN #30 ml 08/28/19 Unknown Rx NEBS] levoFLOXacin [Levaquin] 750 mg PO QDAY #7 tablet 08/28/19 Unknown Rx Albuterol Mdi (or & Nicu Only) 2 puff IH Q4HR PRN 30 Days #1 pump 12/20/21 Unknown Rx [ProAir HFA Inhaler] Ipratropium/Albuter (Nf) 2 puff IH QID 30 Days #1 inha 12/20/21 Unknown Rx [Combivent Inhaler] Prednisone [predniSONE 10 mg 10 mg PO .TAPER #1 tab.ds.pk 12/20/21 Unknown Rx (6-Day Pack, 21 Tabs)] levoFLOXacin [Levaquin TAB] 500 mg PO QDAY 5 Days #5 tablet 12/20/21 Unknown Rx Allergies Allergy/AdvReac Type Severity Reaction Status Date / Time No Known Allergies Allergy Verified 12/19/21 11:03 ED Review of Systems ROS: Stated complaint: SOB Other details as noted in HPI Constitutional: denies: chills, fever Eyes: denies: eye pain, eye discharge, vision change ENT: denies: ear pain, throat pain Respiratory: denies: cough, shortness of breath, wheezing Cardiovascular: denies: chest pain, palpitations Endocrine: no symptoms reported Gastrointestinal: denies: abdominal pain, nausea, diarrhea Genitourinary: denies: urgency, dysuria Musculoskeletal: denies: back pain, joint swelling, arthralgia Skin: denies: rash, lesions Neurological: denies: headache, weakness, paresthesias Psychiatric: denies: anxiety, depression Hematological/Lymphatic: denies: easy bleeding, easy bruising ED Past Medical Hx - Past Medical History Previous Medical History?: Yes Hx Hypertension: Yes Hx Congestive Heart Failure: Yes Hx Asthma: Yes Hx COPD: Yes Additional medical history: Tackycardia - Surgical History Past Surgical History?: Yes Additional Surgical History: tendon in right hand fixed - Social History Smoking Status: Current Every Day Smoker Substance Use Type: None - Medications Home Medications: Home Medications Medication Instructions Recorded Confirmed Last Taken Type Cyclobenzaprine [Flexeril] 10 mg PO Q8H PRN #15 tablet 02/07/19 Unknown Rx Ibuprofen [Motrin] 600 mg PO Q8H PRN #20 tablet 02/07/19 Unknown Rx Albuterol Mdi (or & Nicu Only) 2 puff IH QID PRN #1 inhalation 05/18/19 Unknown Rx [ProAir HFA Inhaler] Albuterol Sulfate [Albuterol 0.63% 0.63 mg IH Q4HR PRN #30 ml 08/28/19 Unknown Rx NEBS] levoFLOXacin [Levaquin] 750 mg PO QDAY #7 tablet 08/28/19 Unknown Rx Albuterol Mdi (or & Nicu Only) 2 puff IH Q4HR PRN 30 Days #1 pump 12/20/21 Unknown Rx [ProAir HFA Inhaler] Ipratropium/Albuter (Nf) 2 puff IH QID 30 Days #1 inha 12/20/21 Unknown Rx [Combivent Inhaler] Prednisone [predniSONE 10 mg 10 mg PO .TAPER #1 tab.ds.pk 12/20/21 Unknown Rx (6-Day Pack, 21 Tabs)] levoFLOXacin [Levaquin TAB] 500 mg PO QDAY 5 Days #5 tablet 12/20/21 Unknown Rx ED Physical Exam - General Limitations: No Limitations General appearance: alert, anxious - Head Head exam: Present: atraumatic, normocephalic - Eye Eye exam: Present: normal appearance - ENT ENT exam: Present: mucous membranes moist - Neck Neck exam: Present: normal inspection - Respiratory Respiratory exam: Present: wheezes, decreased breath sounds. Absent: respiratory distress - Cardiovascular Cardiovascular Exam: Present: regular rate, normal rhythm. Absent: systolic murmur, diastolic murmur, rubs, gallop - GI/Abdominal GI/Abdominal exam: Present: soft, normal bowel sounds - Rectal Rectal exam: Present: deferred - Extremities Exam Extremities exam: Present: normal inspection - Back Exam Back exam: Present: normal inspection - Neurological Exam Neurological exam: Present: alert, oriented X3 - Psychiatric Psychiatric exam: Present: normal affect, normal mood - Skin Skin exam: Present: warm, dry, intact, normal color. Absent: rash ED Course Vital Signs 01/17/22 01/18/22 01/18/22 23:35 00:35 00:38 Temperature 98 F Pulse Rate 113 H Pulse Rate [ 104 H Bilateral] Respiratory 20 11 L Rate Respiratory 18 Rate [Bilateral ] Blood Pressure 150/90 O2 Sat by Pulse 98 100 Oximetry 01/18/22 01/18/22 01/18/22 00:45 01:01 01:15 Temperature Pulse Rate 120 H 109 H 108 H Pulse Rate [ Bilateral] Respiratory 24 13 12 Rate Respiratory Rate [Bilateral ] Blood Pressure 140/86 140/86 140/86 O2 Sat by Pulse 100 100 100 Oximetry 01/18/22 01/18/22 01/18/22 01:31 01:45 02:01 Temperature Pulse Rate Pulse Rate [ Bilateral] Respiratory 15 13 21 Rate Respiratory Rate [Bilateral ] Blood Pressure 140/86 129/77 129/77 O2 Sat by Pulse 100 100 100 Oximetry 01/18/22 01/18/22 01/18/22 02:15 02:31 02:45 Temperature Pulse Rate Pulse Rate [ Bilateral] Respiratory 23 27 H 21 Rate Respiratory Rate [Bilateral ] Blood Pressure 129/77 129/77 129/77 O2 Sat by Pulse 100 100 100 Oximetry 01/18/22 01/18/22 01/18/22 03:01 03:15 03:31 Temperature Pulse Rate Pulse Rate [ Bilateral] Respiratory 22 25 H 19 Rate Respiratory Rate [Bilateral ] Blood Pressure 129/77 129/77 129/77 O2 Sat by Pulse 100 100 100 Oximetry 01/18/22 01/18/22 01/18/22 03:45 04:01 04:47 Temperature Pulse Rate 122 H Pulse Rate [ Bilateral] Respiratory 23 24 28 H Rate Respiratory Rate [Bilateral ] Blood Pressure 110/62 110/62 110/62 O2 Sat by Pulse 99 100 100 Oximetry ED Medical Decision Making - Lab Data Result diagrams: 01/18/22 01:04 01/18/22 01:04 - EKG Data -: EKG Interpreted by Me EKG shows normal: sinus rhythm Rate: tachycardia - EKG Data When compared to previous EKG there are: no significant change - Radiology Data Radiology results: report reviewed, image reviewed - Medical Decision Making work up showed hypercapnea, bipap , applied sterids and rt given will admit for hypercapnea Critical care attestation.: If time is entered above; I have spent that time in minutes in the direct care of this critically ill patient, excluding procedure time. ED Disposition Clinical Impression: COPD with exacerbation, Acute respiratory failure with hypoxia and hypercarbia Disposition: 09 ADMITTED INPATIENT Is pt being admited?: Yes Does the pt Need Aspirin: No Condition: Stable Instructions: Chronic Obstructive Pulmonary Disease (ED) Referrals: GEOVANY HOWARD MD [Primary Care Provider] - 3-5 Days
[2022-01-18 06:01] LABS: Bilirubin,Urine Negative (Negative); Color,Urine Straw (Yellow)
[2022-01-18 06:02] LABS: Blood,Urine Trace (Negative); Protein,Urine <15 mg/dL mg/dL (Negative)
[2022-01-18 07:14] LABS: Basophils % (Manual) 0 % (0.0-1.8); Eosinophils % (Manual) 0 % (0.0-4.3); Monocytes % (Manual) 0 % (0.0-7.3); Total Cells Counted 100
[2022-01-18 07:15] LABS: Platelet Estimate Consistent w Auto
[2022-01-18] MEDS ORDERED: LORazepam 2 MG/ML VIAL IV ONE (07:40)
[2022-01-18] MEDS ORDERED: LORazepam 1 MG TAB PO ONE (08:01)
--- NOTE | 2022-01-18 08:28 | History and Physical Report ---
History of Present Illness Date of examination: 01/18/22 History of present illness: 51-year-old male with history of nicotine dependence, chronic hypercapenia, and COPD on home oxygen at 3 liters comes in for increasing shortness of breath. States he was short of breath all day on his home 3l/min. He was seen in December for copd exacerbation and acute on chronic hypercapneic failure. Patient states that since then he has been out of his nebulizer therapy and has not been seeing a doctor for his condition. He denies fevers, chills, N/V/D, chest pain, abd pain. Remainder of ROS negative. - Past Medical History --Hypertension: Yes --Congestive Heart Failure: Yes --Asthma: Yes --COPD: Yes (Emphysema Stage IV Home 02 3L prn) --Additional medical history: Tackycardia - Surgical History --Additional Surgical History: tendon in right hand fixed - Social History --Smoking Status: Current Every Day Smoker Medications and Allergies Allergies Allergy/AdvReac Type Severity Reaction Status Date / Time No Known Allergies Allergy Verified 12/19/21 11:03 Home Medications Medication Instructions Recorded Confirmed Last Taken Type Cyclobenzaprine [Flexeril] 10 mg PO Q8H PRN #15 tablet 02/07/19 Unknown Rx Ibuprofen [Motrin] 600 mg PO Q8H PRN #20 tablet 02/07/19 Unknown Rx Albuterol Mdi (or & Nicu Only) 2 puff IH QID PRN #1 inhalation 05/18/19 Unknown Rx [ProAir HFA Inhaler] Albuterol Sulfate [Albuterol 0.63% 0.63 mg IH Q4HR PRN #30 ml 08/28/19 Unknown Rx NEBS] levoFLOXacin [Levaquin] 750 mg PO QDAY #7 tablet 08/28/19 Unknown Rx Albuterol Mdi (or & Nicu Only) 2 puff IH Q4HR PRN 30 Days #1 pump 12/20/21 Unknown Rx [ProAir HFA Inhaler] Ipratropium/Albuter (Nf) 2 puff IH QID 30 Days #1 inha 12/20/21 Unknown Rx [Combivent Inhaler] Prednisone [predniSONE 10 mg 10 mg PO .TAPER #1 tab.ds.pk 12/20/21 Unknown Rx (6-Day Pack, 21 Tabs)] levoFLOXacin [Levaquin TAB] 500 mg PO QDAY 5 Days #5 tablet 12/20/21 Unknown Rx ALBUTEROL NEB's [Proventil 0.083% 2.5 mg IH TID PRN 30 Days #1 neb 01/18/22 Unknown Rx NEBS] Azithromycin [Zithromax TAB] 500 mg PO QDAY 3 Days #3 tab 01/18/22 Unknown Rx Budesonide [Pulmicort Respules] 0.5 mg IH Q12HR 30 Days #1 nebu 01/18/22 Unknown Rx Ipratropium/Albuterol Sulfate 1 ampul IH Q4HR 30 Days #1 01/18/22 Unknown Rx [DUONEB *Not for PRN Use*] ampul.neb predniSONE [Deltasone] 40 mg PO QDAY 4 Days #4 tab 01/18/22 Unknown Rx Review of Systems All systems: negative (for stated in HPI.) Exam - Physical Exam Narrative exam: Physical Exam: VITAL SIGNS: Reviewed. GENERAL: The patient appears normally developed, Vital signs as documented. on bipap initially now on nasal cannula 3 l/min HEAD: No signs of head trauma. EYES: Pupils are equal. Extraocular motions intact. EARS: Hearing grossly intact. MOUTH: Oropharynx is normal. NECK: No adenopathy, no JVD. CHEST: poor airmovement. CARDIAC: Regular rate and rhythm. S1 and S2, without murmurs, gallops, or rubs. VASCULAR: No Edema. Peripheral pulses normal and equal in all extremities. ABDOMEN: Soft, non tender and non distended. No rebound or guarding, and no masses palpated. Bowel Sounds normal. MUSCULOSKELETAL: Good range of motion of all major joints. Extremities without clubbing, cyanosis or edema. NEUROLOGIC EXAM: Alert and oriented x 4. no focal sensory or strength deficits. PSYCHIATRIC: Mood normal. SKIN: detail exam as documented in skin assessment - Constitutional Vitals: Temp Pulse Resp BP Pulse Ox 98 F 122 H 28 H 110/62 100 01/17/22 23:35 01/18/22 04:47 01/18/22 04:47 01/18/22 04:47 01/18/22 04:47 HEART Score - HEART Score Troponin: Troponin T < 0.010 ng/mL (0.00-0.029) 01/18/22 01:04 Results - Labs CBC & Chem 7: 08/13/22 01:04 01/18/22 01:04 Labs: Laboratory Last Values WBC 6.8 K/mm3 (4.5-11.0) 01/18/22 01:04 RBC 3.63 M/mm3 (3.65-5.03) L 01/18/22 01:04 Hgb 10.4 gm/dl (11.8-15.2) L 01/18/22 01:04 Hct 31.7 % (35.5-45.6) L 01/18/22 01:04 MCV 87 fl (84-94) 01/18/22 01:04 MCH 29 pg (28-32) 01/18/22 01:04 MCHC 33 % (32-34) 01/18/22 01:04 RDW 14.4 % (13.2-15.2) 01/18/22 01:04 Plt Count 281 K/mm3 (140-440) 01/18/22 01:04 Add Manual Diff Complete 01/18/22 01:04 Total Counted 100 01/18/22 01:04 Seg Neutrophils % Wet End Tester 01/18/22 01:04 Seg Neuts % (Manual) 91.0 % (40.0-70.0) H 01/18/22 01:04 Band Neutrophils % 0 % 01/18/22 01:04 Lymphocytes % (Manual) 7.0 % (13.4-35.0) L 01/18/22 01:04 Reactive Lymphs % (Man) 0 % 01/18/22 01:04 Monocytes % (Manual) 0 % (0.0-7.3) 01/18/22 01:04 Eosinophils % (Manual) 0 % (0.0-4.3) 01/18/22 01:04 Basophils % (Manual) 0 % (0.0-1.8) 01/18/22 01:04 Metamyelocytes % 2.0 % 01/18/22 01:04 Myelocytes % 0 % 01/18/22 01:04 Promyelocytes % 0 % 01/18/22 01:04 Blast Cells % 0 % 01/18/22 01:04 Nucleated RBC % Not Reportable 01/18/22 01:04 Seg Neutrophils # Man 6.2 K/mm3 (1.8-7.7) 01/18/22 01:04 Band Neutrophils # 0.0 K/mm3 01/18/22 01:04 Lymphocytes # (Manual) 0.5 K/mm3 (1.2-5.4) L 01/18/22 01:04 Abs React Lymphs (Man) 0.0 K/mm3 01/18/22 01:04 Monocytes # (Manual) 0.0 K/mm3 (0.0-0.8) 01/18/22 01:04 Eosinophils # (Manual) 0.0 K/mm3 (0.0-0.4) 01/18/22 01:04 Basophils # (Manual) 0.0 K/mm3 (0.0-0.1) 01/18/22 01:04 Metamyelocytes # 0.1 K/mm3 01/18/22 01:04 Myelocytes # 0.0 K/mm3 01/18/22 01:04 Promyelocytes # 0.0 K/mm3 01/18/22 01:04 Blast Cells # 0.0 K/mm3 01/18/22 01:04 WBC Morphology Not Reportable 01/18/22 01:04 Hypersegmented Neuts Not Reportable 01/18/22 01:04 Hyposegmented Neuts Not Reportable 01/18/22 01:04 Hypogranular Neuts Not Reportable 01/18/22 01:04 Smudge Cells Not Reportable 01/18/22 01:04 Toxic Granulation Not Reportable 01/18/22 01:04 Toxic Vacuolation Not Reportable 01/18/22 01:04 Dohle Bodies Not Reportable 01/18/22 01:04 Pelger-Huet Anomaly Not Reportable 01/18/22 01:04 Kourtney Rods Not Reportable 01/18/22 01:04 Platelet Estimate Consistent w auto 01/18/22 01:04 Clumped Platelets Not Reportable 01/18/22 01:04 Plt Clumps, EDTA Not Reportable 01/18/22 01:04 Large Platelets Not Reportable 01/18/22 01:04 Giant Platelets Not Reportable 01/18/22 01:04 Platelet Satelliting Not Reportable 01/18/22 01:04 Plt Morphology Comment Not Reportable 01/18/22 01:04 RBC Morphology Not Reportable 01/18/22 01:04 Dimorphic RBCs Not Reportable 01/18/22 01:04 Polychromasia Not Reportable 01/18/22 01:04 Hypochromasia Not Reportable 01/18/22 01:04 Poikilocytosis Not Reportable 01/18/22 01:04 Anisocytosis Not Reportable 01/18/22 01:04 Microcytosis Not Reportable 01/18/22 01:04 Macrocytosis Not Reportable 01/18/22 01:04 Spherocytes Not Reportable 01/18/22 01:04 Pappenheimer Bodies Not Reportable 01/18/22 01:04 Sickle Cells Not Reportable 01/18/22 01:04 Target Cells Not Reportable 01/18/22 01:04 Tear Drop Cells Not Reportable 01/18/22 01:04 Ovalocytes Not Reportable 01/18/22 01:04 Helmet Cells Not Reportable 01/18/22 01:04 [place] Bodies Not Reportable 01/18/22 01:04 [place] Rings Not Reportable 01/18/22 01:04 [place] Cells Not Reportable 01/18/22 01:04 Bite Cells Not Reportable 01/18/22 01:04 Crenated Cell Not Reportable 01/18/22 01:04 Elliptocytes Not Reportable 01/18/22 01:04 Acanthocytes (Spur) Not Reportable 01/18/22 01:04 Rouleaux Not Reportable 01/18/22 01:04 Hemoglobin C Crystals Not Reportable 01/18/22 01:04 Schistocytes Not Reportable 01/18/22 01:04 Malaria parasites Not Reportable 01/18/22 01:04 Lc Bodies Not Reportable 01/18/22 01:04 Hem Pathologist Commnt No 01/18/22 01:04 PT 14.0 Sec. (12.2-14.9) 01/18/22 01:04 INR 0.97 (0.87-1.13) 01/18/22 01:04 ABG pH 7.254 pH Units (7.350-7.450) L 01/18/22 03:10 ABG pCO2 114.7 mm Hg 01/18/22 03:10 ABG pO2 156.5 mm Hg (80.0-90.0) H 01/18/22 03:10 ABG HCO3 49.7 mmol/L (20.0-26.0) H 01/18/22 03:10 ABG O2 Saturation 98.5 % (95.0-99.0) 01/18/22 03:10 ABG O2 Content 13.8 (0.0-44) 01/18/22 03:10 ABG Base Excess 18.6 mmol/L (-2.0-3.0) H 01/18/22 03:10 ABG Hemoglobin 10.2 gm/dl (14.0-18.0) L 01/18/22 03:10 ABG Carboxyhemoglobin 4.0 % (0.0-5.0) 01/18/22 03:10 ABG Methemoglobin 0.5 % (0.0-1.5) 01/18/22 03:10 Oxyhemoglobin 94.1 % (95.0-99.0) L 01/18/22 03:10 FiO2 36 % 01/18/22 03:10 Sodium 146 mmol/L (137-145) H 01/18/22 01:04 Potassium 4.8 mmol/L (3.6-5.0) 01/18/22 01:04 Chloride 95.0 mmol/L (98-107) L 01/18/22 01:04 Carbon Dioxide 44 mmol/L (22-30) H* 01/18/22 01:04 Anion Gap 12 mmol/L 01/18/22 01:04 BUN 6 mg/dL (9-20) L 01/18/22 01:04 Creatinine 0.4 mg/dL (0.8-1.3) L 01/18/22 01:04 Estimated GFR > 60 ml/min 01/18/22 01:04 BUN/Creatinine Ratio 15 % 01/18/22 01:04 Glucose 77 mg/dL (75-100) 01/18/22 01:04 Lactic Acid 1.20 mmol/L (0.7-2.0) 01/18/22 05:57 Calcium 9.4 mg/dL (8.4-10.2) 01/18/22 01:04 Total Bilirubin 0.20 mg/dL (0.1-1.2) 01/18/22 01:04 AST 16 units/L (5-40) 01/18/22 01:04 ALT 11 units/L (7-56) 01/18/22 01:04 Alkaline Phosphatase 78 units/L (35-129) 01/18/22 01:04 Total Creatine Kinase 82 units/L (55-170) 01/18/22 01:04 CK-MB (CK-2) 4.5 ng/mL (0.0-4.0) H 01/18/22 01:04 CK-MB (CK-2) Rel Index 5.4 (0-4) H 01/18/22 01:04 Troponin T < 0.010 ng/mL (0.00-0.029) 01/18/22 01:04 Total Protein 6.8 g/dL (6.3-8.2) 01/18/22 01:04 Albumin 3.9 g/dL (3.9-5) 01/18/22 01:04 Albumin/Globulin Ratio 1.3 % 01/18/22 01:04 Lipase 16 units/L (13-60) 01/18/22 01:04 Urine Color Straw (Yellow) 01/18/22 Unknown Urine Turbidity Clear (Clear) 01/18/22 Unknown Urine pH 8.0 (5.0-7.0) H 01/18/22 Unknown Ur Specific [place] 1.010 (1.003-1.030) 01/18/22 Unknown Urine Protein <15 mg/dl mg/dL (Negative) 01/18/22 Unknown Urine Glucose (UA) Negative mg/dL (Negative) 01/18/22 Unknown Urine Ketones Negative mg/dL (Negative) 01/18/22 Unknown Urine Blood Trace (Negative) 01/18/22 Unknown Urine Nitrite Negative (Negative) 01/18/22 Unknown Ur Reducing Substances Not Reportable 01/18/22 Unknown Urine Bilirubin Negative (Negative) 01/18/22 Unknown Urine Ictotest Not Reportable 01/18/22 Unknown Urine Urobilinogen 0.0 mg/dL (<2.0) 01/18/22 Unknown Ur Leukocyte Esterase 1+ (Negative) 01/18/22 Unknown Urine WBC (Auto) 4.0 /HPF (0.0-6.0) 01/18/22 Unknown Urine RBC (Auto) 2.0 /HPF (0.0-6.0) 01/18/22 Unknown U Epithel Cells (Auto) 1.0 /HPF (0-13.0) 01/18/22 Unknown Urine Mucus Few /HPF 01/18/22 Unknown Urine Opiates Screen Presumptive negative 01/18/22 Unknown Urine Methadone Screen Presumptive negative 01/18/22 Unknown Ur Barbiturates Screen Presumptive negative 01/18/22 Unknown Ur Phencyclidine Scrn Presumptive negative 01/18/22 Unknown Ur Amphetamines Screen Presumptive negative 01/18/22 Unknown U Benzodiazepines Scrn Presumptive negative 01/18/22 Unknown Urine Cocaine Screen Presumptive negative 01/18/22 Unknown U Marijuana (THC) Screen Presumptive negative 01/18/22 Unknown Drugs of Abuse Note Disclamer 01/18/22 Unknown Assessment and Plan Assessment and plan: Assessment and Plan: #COPD exacerbation #Acute on chronic hypercapnic respiratory failure #Emphysema on 3 L home oxygen #Hypertension # Nicotine Abuse. - Cigarettes - behavioral health counseling administered which included education on benefits of smoking cessation as well as options for quitting. +15 min. Assessment and plan: - rapid improvement in clinical condition. - will be discharge home with rx for steroids, nebulizers, azithromycin. - advised to follow up with pulmonology as an outpatient. The high probability of a clinically significant, sudden or life threatening deterioration of the [multi] system(s) required my full and direct attention, intervention and personal management. The aggregate critical care time was [60] minutes. This time is in addition to time spent performing reported procedures but includes the following: [x] Data Review and interpretation [x] Patient assessment and monitoring of vital signs [x] Documentation [x] Medication orders and management
[2022-01-18] MEDS ORDERED: AZITHROMYCIN/NS 500 MG/250 ML 500 MG/250 ML BAG IV SCH (10:00)
--- NOTE | 2022-01-18 11:00 | Discharge Summary ---
Providers - Providers Date of discharge: 01/18/22 Primary care physician: GEOVANY HOWARD Hospitalization Reason for admission: Hartness of breath Condition: Stable Hospital course: HPI: 51-year-old male presenting to our facility for shortness of breath. States he was short of breath all day on his home 3l/min. He was seen in December for copd exacerbation and acute on chronic hypercapneic failure. Patient states that since then he has been out of his nebulizer therapy and has not been seeing a doctor for his condition. He denies fevers, chills, N/V/D, chest pain, abd pain. Remainder of ROS negative. Hospital course: Patient was admitted for copd exacerbation and acute on chronic hypercapneic respiratory failure. Patient was placed initially on bipap but improved so descalated to home 3L /min nasal cannula. He was treated with solumedrol, azithromycin, ipratropium, and albuterol and improved. He stated he was out of his nebulizer therapy for inhalers. Will be discharging the patient home today due to rapid improvement in respiratory funciton. RX for azithromycin, prednisone, albuterol, duoneb, and budesonide given. Assessment and Plan: #COPD exacerbation #Acute on chronic hypercapnic respiratory failure #Emphysema on 3 L home oxygen #Hypertension # Nicotine Abuse. - Cigarettes - behavioral health counseling administered which included education on benefits of smoking cessation as well as options for quitting. +15 min. Disposition: 01 HOME / SELF CARE / HOMELESS Final Discharge Diagnosis (Prints w/discharge instructions): acute on chronic hypercapneic respiratory failure, copd exacerbation Time spent for discharge: 25 Core Measure Documentation - Palliative Care Palliative Care/ Comfort Measures: Not Applicable - Core Measures Any of the following diagnoses?: none Exam - Physical Exam Narrative exam: Physical Exam: VITAL SIGNS: Reviewed. GENERAL: The patient appears normally developed, Vital signs as documented. on bipap initially now on nasal cannula 3 l/min HEAD: No signs of head trauma. EYES: Pupils are equal. Extraocular motions intact. EARS: Hearing grossly intact. MOUTH: Oropharynx is normal. NECK: No adenopathy, no JVD. CHEST: poor airmovement. CARDIAC: Regular rate and rhythm. S1 and S2, without murmurs, gallops, or rubs. VASCULAR: No Edema. Peripheral pulses normal and equal in all extremities. ABDOMEN: Soft, non tender and non distended. No rebound or guarding, and no masses palpated. Bowel Sounds normal. MUSCULOSKELETAL: Good range of motion of all major joints. Extremities without clubbing, cyanosis or edema. NEUROLOGIC EXAM: Alert and oriented x 4. no focal sensory or strength deficits. PSYCHIATRIC: Mood normal. SKIN: detail exam as documented in skin assessment - Constitutional Vitals: Temp Pulse Resp BP Pulse Ox 98.0 F 125 H 19 137/89 100 01/18/22 09:43 01/18/22 09:43 01/18/22 09:53 01/18/22 09:43 01/18/22 09:53 Plan Follow up with: GEOVANY HOWARD MD [Primary Care Provider] - 3-5 Days Prescriptions: predniSONE [Deltasone] 40 mg PO QDAY 4 Days #4 tab Ipratropium/Albuterol Sulfate [DUONEB *Not for PRN Use*] 1 ampul IH Q4HR 30 Days #1 ampul.neb ALBUTEROL NEB's [Proventil 0.083% NEBS] 2.5 mg IH TID PRN 30 Days #1 neb PRN Reason: Wheezing Budesonide [Pulmicort Respules] 0.5 mg IH Q12HR 30 Days #1 nebu Azithromycin [Zithromax TAB] 500 mg PO QDAY 3 Days #3 tab
[2022-01-18 12:20] VITALS: BP 146/96
--- NOTE | 2022-01-19 14:40 | Electrocardiograph Report ---
[facility] Test Date: 2022-01-18 Test Time: 01:19:36 Pat Name: MURALI MANRIQUEZ JR Department: Room: Gender: M Welt Butter Hand: ER : 1970 Requested By: AVRIL FLORES Order Number: [id number] Reading MD: Juan Zelaya Measurements Intervals Luther Rate: 104 P: 75 DE: 137 QRS: 66 QRSD: 76 T: 68 QT: 347 QTc: 457 Interpretive Statements Sinus tachycardia Compared to ECG 12/19/2021 11:18:06 ST (T wave) deviation now present Electronically Signed On 01-19-2022 14:40:02 EDT by Juan Zelaya
== END 2022-01-18 10:45 | disposition home or self-care (01) ==
LOC: ED 23:35
DX: J44.1 Chronic obstructive pulmonary disease with (acute) exacerbation (principal); J96.02 Acute respiratory failure with hypercapnia; J96.01 Acute respiratory failure with hypoxia; I11.0 Hypertensive heart disease with heart failure; I50.9 Heart failure, unspecified; F17.200 Nicotine dependence, unspecified, uncomplicated; Z79.899 Other long term (current) drug therapy
CPT/HCPCS: 36415; 71045; 80053; 80307; 81001; 82140; 82550; 82553; 82803; 83690; 84484; 85007; 85025; 85610; 93005; 94640; 96374; 99284; J2930; J7040; 94644